=== PATIENT | female | born 1970 | race Two or more races ===

== ENCOUNTER → 2022-05-11 13:29 | Outpatient (BNVA) | payer OTHER, SELFPAY | PROVIDERS: PCP Internal Medicine; Visit Provider Psychiatry & Neurology Neurology | DX: M79.606 Pain in leg, unspecified (principal); M54.9 Dorsalgia, unspecified; G47.10 Hypersomnia, unspecified; R20.0 Anesthesia of skin; R20.2 Paresthesia of skin; R06.83 Snoring | CPT/HCPCS: 99202 ==

== ENCOUNTER → 2022-05-24 12:54 | Outpatient (REF) | payer OTHER, SELFPAY | LOC: HO.SL 12:54 | PROVIDERS: PCP Internal Medicine; Visit Provider Psychiatry & Neurology Neurology | DX: G47.33 Obstructive sleep apnea (adult) (pediatric) (principal); G47.10 Hypersomnia, unspecified; R06.83 Snoring; R06.89 Other abnormalities of breathing | CPT/HCPCS: 95806 ==

== ENCOUNTER 2022-07-06 11:00 | Outpatient (REF) | payer OTHER, SELFPAY ==
--- NOTE | 2022-07-06 10:00 | EMG_ITS ---
Please see scanned EMG / Nerve Conduction Report. MTDD
== END 2022-07-06 11:01 | disposition home or self-care (01) ==
LOC: HO.NEURO 11:00
PROVIDERS: PCP Internal Medicine; Visit Provider Psychiatry & Neurology Neurology
DX: R20.0 Anesthesia of skin (principal); R20.2 Paresthesia of skin
CPT/HCPCS: 95885; 95913

== ENCOUNTER → 2022-08-09 15:51 | Outpatient (BNVA) | payer OTHER, SELFPAY | PROVIDERS: PCP Internal Medicine; Visit Provider Psychiatry & Neurology Neurology | DX: M79.606 Pain in leg, unspecified (principal); M54.9 Dorsalgia, unspecified; G47.33 Obstructive sleep apnea (adult) (pediatric); Z79.899 Other long term (current) drug therapy | CPT/HCPCS: 99212 ==

== ENCOUNTER 2022-11-04 14:31 | Outpatient (AMB) | payer OTHER, SELFPAY ==
--- NOTE | 2022-11-04 14:33 | A.OFFVIS_ITS ---
Intake Vital Signs 11/04/22 14:34 Height 5 ft 8 in Weight 203 lb BMI 30.9 BP 116/78 Blood Pressure Location Rt brachial Position Sitting Intake Visit Reasons: 2m follow up NEUROPATHY- LVM Intake Note: Patient presents for 2 month follow up. Patient states I've been falling a lot, I loose my balance. Allergies codeine Allergy (Unknown, Verified 11/04/22 14:36) Unknown HPI HPI Comments History of Present Illness Details 52 y/o female patient presents for follo w up of neuropathy and sleep apnea. Pt's home sleep test was c/w mild sleep apnea AHI 7/hr and oxygen tayler was 79%. She is on APAP 5-20 cmH2O but not compliant. She is a side sleeper, and CPAP mask is uncomfortable. Pt uses wrist splint at night, and still gets hands numbness. She does not want to have carpal tunnel surgery. Pt reports that she fell couple of times since the last visit. Denies light headedness, dizziness, lost consciousness or leg weakness. Denies tripped over. She states that she just fell. She is afraid to fall again, and uses her sister's cane or walks holding wall and stuffs. Pt is on gabapentin 600 mg TID and it helps relieve her legs pain. Pt had PT twice for back pain, and does not want to do physical therapy again. [facility] Medical History Hypersomnia Gasping for breath Snoring Numbness and tingling Back pain Lower extremity pain Depression Thyroid cancer Esophageal stenosis Schatzki's ring Hypothyroidism Chronic paroxysmal hemicrania Family History Mother Diabetes Stroke Sister Cervical cancer Breast cancer Father Stroke Myocardial infarction Seizure Paternal Grandfather Cancer of prostate Social History Alcohol intake: never Patient Tobacco Use Status: Never used Tobacco Review of Systems Const All systems reviewed & are unremarkable except as noted in HPI and below Physical Exam Vital Signs: Last Vital Signs BP 116/78 11/04/22 14:34 BMI result Body Mass Index 30.9 Const General: cooperative and healthy appearing Nutritional Appearance: obese Orientation/consciousness: patient oriented x3 Limitations: physical limitations HEENT Head: Yes normal to inspection and Yes normocephalic Face and sinus: Yes normal facial exam Neuro General: patient oriented x3, tone normal and moves all extremities Cranial nerves: Yes Bilaterally intact EOM present, Yes Nystagmus not present, Yes Normal facial strength present, Yes Midline tongue present and Yes Symmetric palate elevation present Cognition (Neuro): normal cognition Gait exam (Neuro): Antalgic gait present Motor exam (neuro): Other motor observations present (limited due to pain) Deep tendon reflexes (DTR's): Right triceps reflex intensity grade: 1+, Left triceps reflex intensity grade: 1+, Rt Biceps (C5, C6): 1+, Left biceps reflex intensity grade: 1+, Right brachioradialis reflex intensity grade: 0, Left brachioradialis reflex intensity grade: 0, Right patellar reflex intensity grade: 1+ and Left patellar reflex intensity grade: 1+ Coordination: [id number] test normal Assessment & Plan Assessment & Plan (1) Lower extremity pain: Comment: / neuropathy ? restless legs Code(s): M79.606 - Pain in leg, unspecified (2) Back pain: Code(s): M54.9 - Dorsalgia, unspecified (3) Obstructive sleep apnea: Code(s): G47.33 - Obstructive sleep apnea (adult) (pediatric) Plan Stressed CPAP compliance, use CPAP nightly and more than 4 hrs. Offered to have physical therapy for bilateral lower extremities strength and gait training, but pt declined. Ordered walker and cane. Medications: New walker As directed 1 ea 0RF walker As directed 1 ea 0RF cane As directed 1 ea 0RF Coding Level of Care Code Est Pt Level 4 (51277) Diagnoses Lower extremity pain M79.606 Back pain M54.9 Obstructive sleep apnea G47.33
[2022-11-04 14:34] VITALS: BP 116/78; BMI 30.9
== END 2022-11-04 15:07 | disposition home or self-care (01) ==
PROVIDERS: PCP Internal Medicine; Visit Provider Nurse Practitioner Family
DX: M79.606 Pain in leg, unspecified (principal); M54.9 Dorsalgia, unspecified; G47.33 Obstructive sleep apnea (adult) (pediatric)
CPT/HCPCS: 99214

== ENCOUNTER → 2022-11-04 14:31 | Outpatient (BNVA) | payer OTHER, SELFPAY | PROVIDERS: PCP Internal Medicine; Visit Provider Nurse Practitioner Family | DX: M79.606 Pain in leg, unspecified (principal); G47.33 Obstructive sleep apnea (adult) (pediatric); M54.9 Dorsalgia, unspecified | CPT/HCPCS: 99212 ==

== ENCOUNTER 2023-09-22 15:34 | Outpatient (AMB) | payer OTHER, SELFPAY ==
--- NOTE | 2023-09-22 15:36 | A.OFFVIS_ITS ---
Vital Signs 09/22/23 15:38 Height 5 ft 8 in Weight 171 lb BMI 26.0 BP 130/90 H Blood Pressure Location Rt brachial Position Sitting Pulse 77 Pulse Source Pulse Oximeter Pulse Oximetry (%) 100 Oxygen Delivery Method Room Air Intake Visit Reasons: 6m follow up NEUROPATHY-CONF Intake Note: Patient presents for 6 month follow up. patient still hvaing really bad migraine headaches atleast 3 times a week Allergies codeine Allergy (Unknown, Verified 09/22/23 15:39) Unknown Medication List - Last Reconciled 09/22/23 by DASH Montgomery albuterol sulfate 90 mcg/actuation (Ventolin HFA) inhalation bupropion HCl XL 300 mg PO DAILY cane As directed fluoxetine mg PO gabapentin 600 mg (12 mL) PO TID levothyroxine (Tirosint-Porsha) mcg PO prazosin 2 mg PO BID Shower Chair As directed walker As directed [wrist splint As directed] zolpidem ER 12.5 mg PO BEDTIME PRN HPI Comments Details: 53-yr-old female presents for f/u visit of OG and neuropathy, however pt has new concerns she would like to also discuss, pt is accompanied by her sister. Pt reports she has been struggling to use her CPAP machine, as she is prone to vomiting during the day and night since she underwent thyroidectomy. Prior to , she had esophageal dilations which helped, however she has not seen Dr Morales since . She has been falling a lot. Sometimes it looks like her legs just give out. Sometimes will briefly pass out after falling. Afterwards, she feels more weak and tired. Sometimes she has lost urine during her falls. Her sister notes that pt was on seizure medication during childhood, and stopped before she was 18 yo. She recalls taking phenytoin. She had tonic-clonic convulsive seizures a/w tongue biting. Her sister feels the current passing out does not look like her previous seizures. She is prone to orthostatic lightheadedness. She does drink a lot of water- but chokes on the water. She also notes BUE and BLE rest tremor. She does get cortisone injections in her knees- by Dr Palencia. She has been having more noticeable headaches in the past year, but worse in the last 5 months. She is more forgetful. Her hands and feet shake. She has lost > 50lbs in the last year. Her sister wonders if her thyroid tx needs to be adjusted Her last endo appt and thyroid level was earlier this year. Per review of May 2023 [facility] endo note, pt was advised to have f/u thyroid studies and stat thyroid ultrasound- as there was concern for thyroid CA recurrence. Pt today sttaes that she has not done the labs, and was called to schedule the appointment but declined to schedule at that time. States today, she was just busy when they called. [facility] Medical History Hypersomnia Gasping for breath Snoring Numbness and tingling Back pain Lower extremity pain Depression Thyroid cancer Esophageal stenosis Schatzki's ring Hypothyroidism Chronic paroxysmal hemicrania Family History Mother Diabetes Stroke Sister Cervical cancer Breast cancer Father Stroke Myocardial infarction Seizure Paternal Grandfather Cancer of prostate Social History Alcohol intake: never Patient Tobacco Use Status: Never used Tobacco Physical Exam Vital Signs: Last Vital Signs Pulse 77 09/22/23 15:38 BP 130/90 H 09/22/23 15:38 Pulse Ox 100 09/22/23 15:38 Oxygen Delivery Method Room Air 09/22/23 15:38 BMI result Body Mass Index 26.0 Const General: cooperative and no acute distress Orientation/consciousness: patient oriented x3 Resp Effort & Inspection: normal respiratory effort and able to speak in complete sentences Neuro General: patient oriented x3 Cranial nerves: Yes CN's II-XII intact bilaterally Cognition (Neuro): normal cognition Psych Appearance: grossly normal Mental Status: mental status grossly normal Speech and movement: Normal speech and movement present Affect: normal affect Attitude: cooperative Assessment & Plan Assessment & Plan (1) Syncope: Code(s): R55 - Syncope and collapse Category: Medical (2) Schatzki's ring: Code(s): K22.2 - Esophageal obstruction Category: Medical (3) Worsening headaches: Code(s): R51.9 - Headache, unspecified Category: Medical (4) Obstructive sleep apnea: Comment: Mild Code(s): G47.33 - Obstructive sleep apnea (adult) (pediatric) Category: Medical (5) Esophageal stenosis: Code(s): K22.2 - Esophageal obstruction Category: Medical (6) Syncope: Code(s): R55 - Syncope and collapse Category: Medical (7) History of seizure disorder: Code(s): Z86.69 - Personal history of other diseases of the nervous system and sense organs Category: Medical (8) History of seizure in sibling: Code(s): Z82.0 - Family history of epilepsy and other diseases of the nervous system Category: Medical (9) History of thyroid cancer: Code(s): Z85.850 - Personal history of malignant neoplasm of thyroid Category: Medical Plan Pt advised to: Add 1-2 servings of electrolyte replacement beverage daily. Stand slowly. Try to use CPAP- may try new PAP mask. Follow-up w/ [facility] endocrinology, including ordered labs and thyroid US- discussed that there was concern for cancer recurrence. Brain MRI w/wo- d/t falls, syncope, worsening headaches in setting of h/o thyroid cancer and childhood seizure activity. Baseline EEG. Cardiology consult to eval for cardiogenic etiologies of falls/syncope. GI consult w/ Dr Morales d/t worsening dysphagia. Consider medication tx for headaches, syncope, ? sz activity upon review of above. Will follow-up upon review of above and in 6 months in clinic or sooner prn. Orders: Orders EEG electroencephalogram Today R55 - Syncope and collapse, Z82.0 - Family history of epilepsy and other diseases of the nervous system, Z86.69 - Personal history of other diseases of the nervous system and sense organs MR head/brain wo/w con Today R51.9 - Headache, unspecified, R55 - Syncope and collapse, Z85.850 - Personal history of malignant neoplasm of thyroid, Z86.69 - Personal history of other diseases of the nervous system and sense organs Referrals Gastroenterology Referral K22.2 - Esophageal obstruction, R55 - Syncope and collapse, Z82.0 - Family history of epilepsy and other diseases of the nervous system, Z86.69 - Personal history of other diseases of the nervous system and sense organs Cardiology Referral R55 - Syncope and collapse Coding Level of Care Code Est Pt Level 4 (56347) Complex EM visit Add On G2211 Diagnoses Syncope R55 Schatzki's ring K22.2 Worsening headaches R51.9 Obstructive sleep apnea G47.33 Esophageal stenosis K22.2 History of seizure disorder Z86.69 History of seizure in sibling Z82.0 History of thyroid cancer Z85.850 Time Spent (min) 30
[2023-09-22 15:38] VITALS: BP 130/90; PULSE 77; O2SAT 100; BMI 26.0
== END 2023-09-22 16:38 | disposition home or self-care (01) ==
PROVIDERS: PCP Internal Medicine; Visit Provider Nurse Practitioner Family
DX: R55 Syncope and collapse (principal); K22.2 Esophageal obstruction; R51.9 Headache, unspecified; G47.33 Obstructive sleep apnea (adult) (pediatric); Z86.69 Personal history of other diseases of the nervous system and sense organs; Z82.0 Family history of epilepsy and other diseases of the nervous system; Z85.850 Personal history of malignant neoplasm of thyroid
CPT/HCPCS: 99214; G2211

== ENCOUNTER → 2023-09-22 15:34 | Outpatient (BNVA) | payer OTHER, SELFPAY | PROVIDERS: PCP Internal Medicine; Visit Provider Nurse Practitioner Family | DX: G47.33 Obstructive sleep apnea (adult) (pediatric) (principal); G62.9 Polyneuropathy, unspecified; R55 Syncope and collapse; K22.2 Esophageal obstruction; R51.9 Headache, unspecified; Z86.69 Personal history of other diseases of the nervous system and sense organs; Z82.0 Family history of epilepsy and other diseases of the nervous system; Z85.850 Personal history of malignant neoplasm of thyroid; Z99.89 Dependence on other enabling machines and devices | CPT/HCPCS: 99212 ==

== ENCOUNTER 2024-01-16 12:57 | Outpatient (AMB) | payer OTHER, SELFPAY ==
[2024-01-16 13:13] VITALS: BP 115/70; PULSE 69; O2SAT 99; BMI 26.7
--- NOTE | 2024-01-16 13:13 | MHC.OFFVIS ---
Vital Signs 01/16/24 13:13 Height 5 ft 8 in Weight 175 lb 11.335 oz BMI 26.7 BP 115/70 Blood Pressure Location Lt brachial Position Sitting Pulse 69 Pulse Source Pulse Oximeter Pulse Oximetry (%) 99 Oxygen Delivery Method Room Air Intake Visit Reasons: Knee pain/inj/cm Intake Note: Patient is here for bilateral knee pain and injection today. Allergies codeine Allergy (Unknown, Verified 01/16/24 13:17) Unknown eggplant Adverse Reaction (Severe, Verified 01/16/24 13:17) Anaphylaxis paprika Adverse Reaction (Unknown, Verified 01/16/24 13:17) Rash pineapples Allergy (Mild, Uncoded 01/16/24 13:17) rash HPI HPI Knee pain/inj/cm: Details: She had to stop taking liquid Tylenol and ibuprofen due to burning sensation in her throat. She tries to do exercises learned from PT at home. Pain is uncontrolled at this time. [facility] Medical History Hypersomnia Gasping for breath Snoring Numbness and tingling Back pain Lower extremity pain Depression Thyroid cancer Esophageal stenosis Schatzki's ring Hypothyroidism Chronic paroxysmal hemicrania Family History Mother Diabetes Stroke Sister Cervical cancer Breast cancer Father Stroke Myocardial infarction Seizure Paternal Grandfather Cancer of prostate Social History Alcohol intake: never Patient Tobacco Use Status: Never used Tobacco Review of Systems Const All systems reviewed & are unremarkable except as noted in HPI and below Physical Exam Vital Signs: Last Vital Signs Pulse 69 01/16/24 13:13 BP 115/70 01/16/24 13:13 Pulse Ox 99 01/16/24 13:13 Oxygen Delivery Method Room Air 01/16/24 13:13 BMI result Body Mass Index 26.7 Const Other: General: Comfortable CVS: RRR Respiratory: clear to auscultation bilaterally. Good respiratory effort Skin: No lesions seen MSK: Tender to palpate bilateral knees along joint line. No effusions present. Knee flexion 90 degrees bilateral. Ambulates with cane. Office Procedures AMB Joint Injection/Aspiration Joint Injection/Aspiration Secondary Site: right knee Prep: site was prepped using aseptic technique Injected: 40 mg of, Kenalog, with 1 mL of and 1% plain lidocaine Procedure: The patient tolerated the procedure well Coding 95531 - Large joint Additional procedure code (CPT) needed (-50 modifier) AMB Joint Injection/Aspiration Joint Injection/Aspiration Primary Site: left knee Prep: site was prepped using aseptic technique Injected: 40 mg of, Kenalog, with 1 mL of and 1% plain lidocaine Procedure: The patient tolerated the procedure well Coding 37616 - Large joint Additional procedure code (CPT) needed (modifier -50) Office Meds Kenalog 40 mg/mL suspension for injection Performing Provider: Hilton Palencia MD Performing Location: [facility] [place] [facility] Administered by: Hilton Palencia MD on 01/16/24 22:09 Dose Route Admin Location Dispensed Lot Number Expiration Date [facility] Credit [employer] 40 mg intra-articular 1 mL [address]-5 [employer] lidocaine (PF) 10 mg/mL (1 %) injection solution Performing Provider: Hilton Palencia MD Performing Location: [facility] [place] [facility] Administered by: Hilton Palencia MD on 01/16/24 22:09 Dose Route Admin Location Dispensed Lot Number Expiration Date [facility] [employer] 10 mg Infiltration 2 mL 10599-440-28 [employer] Kenalog 40 mg/mL suspension for injection Performing Provider: Hilton Palencia MD Performing Location: [facility] [place] [facility] Administered by: Hilton Palencia MD on 01/16/24 22:09 Dose Route Admin Location Dispensed Lot Number Expiration Date [facility] [employer] 40 mg intra-articular 1 mL [id number] [employer] lidocaine (PF) 10 mg/mL (1 %) injection solution Performing Provider: Hilton Palencia MD Performing Location: [facility] [place] [facility] Administered by: Hilton Palencia MD on 01/16/24 22:09 Dose Route Admin Location Dispensed Lot Number Expiration Date [facility] [employer] 10 mg Infiltration 2 mL [id number] [employer] Assessment & Plan Assessment & Plan (1) Osteoarthritis of knees, bilateral: Comment: Pain is uncontrolled. Code(s): M17.0 - Bilateral primary osteoarthritis of knee Category: Medical Plan: Bilateral knee cortisone injections given today Return to clinic in 3 months Consider capsaicin topical apply to knees every 8 hours Requesting medical records from [facility] Orders: Orders AMB Joint Injection/Aspiration Today M17.0 - Bilateral primary osteoarthritis of knee AMB Joint Injection/Aspiration Today M17.0 - Bilateral primary osteoarthritis of knee Medications: New Kenalog (triamcinolone acetonide) 40 mg intra-articular ONCE 1 mL 0RF NS M17.0 - Bilateral primary osteoarthritis of knee Kenalog (triamcinolone acetonide) 40 mg intra-articular ONCE 1 mL 0RF NS M17.0 - Bilateral primary osteoarthritis of knee lidocaine (PF) 10 mg Infiltration ONCE 1 mL 0RF M17.0 - Bilateral primary osteoarthritis of knee lidocaine (PF) 10 mg Infiltration ONCE 1 mL 0RF M17.0 - Bilateral primary osteoarthritis of knee Coding Level of Care Code Est Pt Level 3 (88282) Complex EM visit Add On G2211 Diagnoses Osteoarthritis of knees, bilateral M17.0 CPT Codes Coding - 86788 Large joint: 62474 - Large joint ([id number]) Coding - 16570 Large joint: 70441 - Large joint ([id number])
== END 2024-01-16 13:44 | disposition home or self-care (01) ==
PROVIDERS: PCP Internal Medicine; Visit Provider Internal Medicine Rheumatology
DX: M17.0 Bilateral primary osteoarthritis of knee (principal)
CPT/HCPCS: 20610; 99213

== ENCOUNTER → 2024-01-16 12:57 | Outpatient (BNVA) | payer OTHER, SELFPAY | PROVIDERS: PCP Internal Medicine; Visit Provider Internal Medicine Rheumatology | DX: M17.0 Bilateral primary osteoarthritis of knee (principal) | CPT/HCPCS: 20610; 99212; J2003; J3300 ==

== ENCOUNTER 2024-04-25 14:07 | Outpatient (AMB) | payer OTHER, SELFPAY ==
--- NOTE | 2024-04-25 14:12 | MHC.OFFVIS ---
Vital Signs 04/25/24 14:16 Weight 176 lb BP 120/80 Blood Pressure Location Rt brachial Position Sitting Pulse 101 H Pulse Source Pulse Oximeter Pulse Oximetry (%) 98 Oxygen Delivery Method Room Air Intake Visit Reasons: Follow Up 3mo Intake Note: Patient is here for a OA follow up.and bilateral knee injections. Allergies codeine Allergy (Unknown, Verified 04/25/24 14:16) Unknown eggplant Adverse Reaction (Severe, Verified 04/25/24 14:16) Anaphylaxis paprika Adverse Reaction (Unknown, Verified 04/25/24 14:16) Rash pineapples Allergy (Mild, Uncoded 01/16/24 13:17) rash PFSH Medical History Hypersomnia Gasping for breath Snoring Numbness and tingling Back pain Lower extremity pain Depression Thyroid cancer Esophageal stenosis Schatzki's ring Hypothyroidism Chronic paroxysmal hemicrania Family History Mother Diabetes Stroke Sister Cervical cancer Breast cancer Father Stroke Myocardial infarction Seizure Paternal Grandfather Cancer of prostate Social History Alcohol intake: never Patient Tobacco Use Status: Never used Tobacco Physical Exam Vital Signs: Last Vital Signs Pulse 101 H 04/25/24 14:16 BP 120/80 04/25/24 14:16 Pulse Ox 98 04/25/24 14:16 Oxygen Delivery Method Room Air 04/25/24 14:16 Office Procedures AMB Joint Injection/Aspiration Joint Injection/Aspiration Details: Bilateral knee joints Prep: site was prepped using aseptic technique Injected into each joint: 40 mg of, Kenalog, with 1 mL of and 1% plain lidocaine Procedure: The patient tolerated the procedure well. Postprocedure protocol was discussed with patient. Coding 56256 - Bilateral Large Joint Procedure code (CPT) selection complete AMB Joint Injection/Aspiration Coding 68418 - Bilateral Large Joint Procedure code (CPT) selection complete Office Meds lidocaine (PF) 10 mg/mL (1 %) injection solution Performing Provider: Hilton Palencia MD [place] [facility] Administered by: Hilton Palencia MD on 04/25/24 15:09 Dose Route Admin Location Dispensed Lot Number Expiration Date [facility] [employer] 10 mg Infiltration 2 mL [id number] [employer] Kenalog 40 mg/mL suspension for injection Performing Provider: Hilton Palencia MD Performing Location: [facility] Administered by: Hilton Palencia MD on 04/25/24 15:09 Dose Route Admin Location Dispensed Lot Number Expiration Date [facility] [employer] Shooter 40 mg intra-articular 1 mL AP [id number] [employer] lidocaine (PF) 10 mg/mL (1 %) injection solution Performing Provider: Hilton Palencia MD Performing Location: [facility] Administered by: Hilton Palencia MD on 04/25/24 15:09 Dose Route Admin Location Dispensed Lot Number Expiration Date [facility] [employer] Tr[employer] Shooter 10 mg Infiltration 2 mL [id number] [employer] Kenalog 40 mg/mL suspension for injection Performing Provider: Hilton Palencia MD Performing Location: [facility] Administered by: Hilton Palencia MD on 04/25/24 15:09 Dose Route Admin Location Dispensed Lot Number Expiration Date [facility] [employer] Tr[employer] Shooter 40 mg intra-articular 1 mL AP [id number] [employer] Assessment & Plan Assessment & Plan (1) Osteoarthritis of knees, bilateral: Comment: Pain is uncontrolled. She is receiving 3 months benefit with cortisone injections Code(s): M17.0 - Bilateral primary osteoarthritis of knee Category: Medical Qualifiers: Osteoarthritis type: primary Qualified Code(s): M17.0 - Bilateral primary osteoarthritis of knee Plan: Patient received bilateral knee cortisone injections this visit Requesting medical records from [facility] 2nd request Return to clinic in 3 months Orders: Orders AMB Joint Injection/Aspiration Today M17.0 - Bilateral primary osteoarthritis of knee AMB Joint Injection/Aspiration Today M17.0 - Bilateral primary osteoarthritis of knee Coding Level of Care Code Est Pt Level 3 (44864) Complex EM visit Add On G2211 Diagnoses Primary osteoarthritis of both knees M17.0 Osteoarthritis type: primary CPT Codes Coding - 98505 - Bilateral Large Joint: 22924 - Bilateral Large Joint ([id number]) Coding - 28346 - Bilateral Large Joint: 31178 - Bilateral Large Joint ([id number])
[2024-04-25 14:16] VITALS: BP 120/80; PULSE 101; O2SAT 98
--- OUTSIDE RECORDS SUMMARY | 2024-04-25 17:57 | XMS_ITS | Encounter Summary ---
[facility] Organization [facility] Address [address] [place] [address] Care Team Providers Care Repairer Pump Name Role Phone Wiliam Das MD Primary Care Provider [phone] Reason for Visit * Cardiac Stress Testing (Routine) - Closed Specialty Diagnoses / Procedures Referred By Contac t Referred To Contact Cardiology Diagnoses Syncope, unspecified syncope type Chest pain, unspecified type Procedures Nuclear stress test with myocardial perfusion IA MYOCARDIAL PERFUSION IMAGING TOMOGRAPHIC MULTI STUDIES AT REST OR STRESS IA MYOCARDIAL PERFUSION IMAGING TOMOGRAPHIC SINGLE STUDY AT REST OR STRESS IA CARDIOVASCULAR STRESS TEST GLOBAL IA CV TMST/BIKE MAX/SUBMAX CONTINUOUS ECG MON/PHARM STRESS SUPVSR ONLY IA CV STRESS TEST/BIKE CONT ECG MON/PHARM STRESS INTERP & REPORT ONLY IA TEST STRESS CARDIOVASCULAR TRACING ONLY Victor Manuel Cole MD [address] [place] [address] [address] [place] [address] Phone: tel: fax: [facility] Referral ID Status Reason Start Date Expiration Date Visits Re quested Visits Authorized [id number] Closed 03/21/2024 05/20/2024 1 1 Encounter Details Date Type Department Care Team (Latest Contact Info) Description 04/05/2024 12:00 PM EST Ancillary Procedure [facility] - [address] [place] [phone] Syncope, unspecified syncope type; Chest pain, unspecified type Social History Tobacco Use Types Packs/Day Years Used Date Smoking Tobacco: Never Smokeless Tobacco: Never Alcohol Use Standard Drinks/Week Comments No 0 (1 standard drink = 0.6 oz pur e alcohol) Comments Unknown Sex and Gender Information Value Date Recorded Sex Assigned at Not on file Legal Sex Female 3:50 AM EST Gender Identity Not on file Sexual Orientation Not on file documented as of this encounter Last Filed Vital Signs Vital Sign Reading Time Taken Comments Blood Pressure 114/72 04/05/2024 12:37 PM EST Pulse - - Temperature - - Respiratory Rate - - Oxygen Saturation - - Inhaled Oxygen Concentration - - Weight 76.2 kg (168 lb) 04/05/2024 12:09 PM EST Height 172.7 cm (5' 8 ) 04/05/2024 12:09 PM EST Body Mass Index 25.54 04/05/2024 12:09 PM EST documented in this encounter Progress Notes * Adela Jerome MA - 04/05/2024 12:00 PM EST Called patient per Leesa Mckenzie SENIOR PROPERTY MANAGER to inform her that her nuclear stress test did not show any signs of abnormal perfusion to her heart. Patient understood and was thankful for the call documented in this encounter Plan of Treatment Upcoming Encounters Date Type Department Care Team (Late st Contact Info) Description 05/31/2024 12:30 PM EDT Ancillary Procedure [facility] [address] [place] [address] 07/19/2024 1:10 PM EDT Office Visit [facility] Cardiology [facility] [address] [place] [address] Leesa Mckenzie NP [address] [place] [address] [place] [id number] documented as of this encounter Procedures Procedure Name Priority Date/Time Associated Diagnosis Comments NM LEXISCAN STRESS TEST W/ MYOCARDIAL PERFUSION Routine 04/05/2024 2:43 PM EST Syncope, unspecified syncope type Chest pain, unspecified type documented in this encounter Results * NM LEXISCAN STRESS TEST W/ MYOCARDIAL PERFUSION (04/05/2024 2:43 PM EST) Exercise/injec tion duration (min) 0 CV PACS STRESS Exercise/injec tion duration (sec) 37 CV PACS STRESS Peak SBP 137 mmHg CV PACS STRESS Peak DBP 77 mmHg CV PACS STRESS Peak HR 150 bpm CV PACS STRESS Baseline HR 77 bpm CV PACS STRESS Baseline SBP 114 mmHg CV PACS STRESS Baseline DBP 72 mmHg CV PACS STRESS Estimated workload 1.0 METS CV PACS STRESS Percent HR 91 % CV PACS STRESS Rate Pressure Product 20,550.0 mmHg*bpm CV PACS STRESS Target HR 140 bpm CV PACS STRESS TID 0.94 CV PACS STRESS Nuc Stress EF 76 % CV PAC S STRESS Nuc Rest EF 72 % CV PACS STRESS BSA 1.91 m2 CV PACS STRESS Max HR Percent 107 % CV PA CS STRESS O2 sat rest 99 % CV PACS STRESS Anatomical Region Laterality Modality Nuclear Medicine 04/05/2024 1:01 PM EST 04/05/2024 1:39 PM EST Impressions 04/05/2024 4:37 PM EST Normal Regadenoson stress test with nuclear imaging. ?? No chest pain or EKG changes consistent with ischemia. Nuclear imaging revealed no significant perfusion defects after attenuation correction was applied. There is a normal TID ratio. Gated SPECT imaging was performed and revealed an LVEF of 72 %. Narrative 04/05/2024 4:37 PM EST ?Vasodilator (regadenoson) stress test was performed . ?? Hypertensive blood pressure response. Nuclear imaging of the left ventricle shows a normal cavity size. Myocardial perfusion imaging of the left ventricle reveals no significant perfusion defects after CT attenuation correction was applied to the study Gated SPECT imaging was performed which demonstrated normal left ventricular systolic function. The calculated LVEF is 72 %. TID ratio is normal. Stress Findings A pharmacological stress test was performed using regadenoson, 0.4 mg IV over 10-15 seconds, followed by radiopharmacological injection 10 seconds post infusion. Total stress time was 0 min and 37 sec. The patient reached the end of the protocol. Reversal medication aminophylline 50 mg p.o. Blood pressure demonstrated a hypertensive response. The patient reported dizziness during the stress test. That resolved after administration of aminophylline. ECG 55-year-old female with a past medical history significant for chest discomfort/chest pain and to rule out ischemia. Not on cardiac meds during testing. Baseline EKG: Normal sinus rhythm There were no arrhythmias during stress. There were no arrhythmias during recovery. Nondiagnostic in the setting of pharmacological nuclear stress test. Nuclear Study Quality Study technique: MPI, SPECT, multi, rest and stress, 1 day. Overall image quality is good. CT attenuation correction was utilized. No radiopharmaceutical dose was extravasated. Stress Function Comments Stress ejection fraction is 76%. Rest Function Comments Resting ejection fraction was 72%. us Victor Manuel Cole MD CV STRESS PROCEDURES Final Res ult documented in this encounter Visit Diagnoses Diagnosis Syncope, unspecified syncope type Chest pain, unspecified type documented in this encounter Administered Medications Inactive Administered Medications - up to 3 most recent administrations Medication Order MAR Action Action Date Dose Rate Site aminophylline injection 50 mg 50 mg, intravenous, Once in imaging, Starting on Mon04/05/24 at 1330, For 1 dose Given 04/05/2024 1:30 PM EST 50 mg regadenoson (LEXISCAN) injection 0.4 mg 0.4 mg, intravenous, Once in imaging, Starting on Mon04/05/24 at 1324, For 1 dose Given 04/05/2024 1:24 PM EST 0.4 mg Right Antecubital TC-99M tetrofosmin P radio-isotope injection 10.7 millicurie 10.7 millicurie, intravenous, Once in imaging, Starting on Mon04/05/24 at 1215, For 1 dose Given 04/05/2024 12:15 PM EST 10.7 millicuries Right Antecubital TC-99M tetrofosmin P radio-isotope injection 32.1 millicurie 32.1 millicurie, intravenous, Once in imaging, Starting on Mon04/05/24 at 1325, For 1 dose Given 04/05/2024 1:25 PM EST 32.1 millicuries Right Antecubital documented in this encounter Care Teams Repairer Pump Relationship Specialty Start Date End Date Wiliam Das MD [address] [place] [id number] PCP - General Internal Medicine 11/26/14 documented as of this encounter
--- OUTSIDE RECORDS SUMMARY | 2024-04-25 17:57 | XMS_ITS | Clinical Summary ---
Author Organization [place] [address] [address] [facility] Building Address [address] [place] [phone] Phone Care Team Providers Care Oyster Harvester Name Role Phone Arpit Green MD Primary Care Provider [phone] Allergies Active Allergy Reactions Criticality Noted Date Comments Codeine Rash Low 12/17/2014 Other 08/31/2020 Other Reaction(s): Rash/Dermatitis Eggplant and paprika Pineapple Rash Low 12/18/2017 Medications prazosin (MINIPRESS) 1 mg capsule Take 1 capsule (1 mg total) by mouth 2 (two) times a day if needed. Active OLANZapine (ZyPREXA ZYDIS) 20 mg disintegrating tablet DISSOLVE 1 TABLET BY MOUTH DAILY.*DOSE INCREASE* Active levothyroxine (SYNTHROID, LEVOTHROID) 300 mcg tablet Take 1 tablet (300 mcg total) by mouth 1 (one) time each day. Active fluticasone propion-salmetero L (ADVAIR HFA) 230-21 mcg/actuation inhaler Inhale 2 Puffs into the lungs 2 times daily. This medication has inhaler steroid: Rinse mouth with water and expectorate after each dose to prevent oral/esophagea l candidiasis or fungal infection. Active gabapentin (NEURONTIN) 250 mg/5 mL solution TAKE 6 ML BY MOUTH DAILY Active clotrimazole-beta methasone (LOTRISONE) 1-0.05 % cream Apply sparingly to external affected area 2 times daily for 7-10 days. Active zolpidem CR (AMBIEN CR) 12.5 mg CR tablet Take 1 tablet (12.5 mg total) by mouth at bedtime as needed. Active buPROPion XL (WELLBUTRIN XL) 300 mg 24 hr tablet Take 1 tablet (300 mg total) by mouth. Active LORazepam (ATIVAN) 1 mg tablet Take 1 mg by mouth 3 times daily as needed Active miscellaneous medical supply misc ARTHRITIS GLOVE SMALL 2 Devices by Does not apply route daily. 1 for each hand Active methocarbamoL (ROBAXIN) 500 mg tabletIndications :Acute bilateral low back pain with sciatica, sciatica laterality unspecified Take 1 tablet (500 mg total) by mouth 3 (three) times a day if needed for muscle spasms. 30 tablet Active Ventolin HFA 90 mcg/actuation inhalerIndication s:Mild persistent asthma, uncomplicated INHALE 2 PUFFS INTO THE LUNGS EVERY 6 HOURS NEEDED FOR WHEEZING OR SHORTNESS OF BREATH, TIGHTNESS 54 each 1 Active gabapentin (NEURONTIN) 300 mg capsule TAKE 1 CAPSULE BY MOUTH EVERY DAY IN THE EVENING FOR 7 DAYS, THEN INCREASE TO 1 CAPSULE TWICE DAILY 60 capsule 2 025 Active meloxicam (MOBIC) 7.5 mg tablet TAKE 1 TABLET BY MOUTH 2 TIMES DAILY FOR 360 DAYS. 60 tablet 3 025 Active meloxicam (MOBIC) 7.5 mg tablet TAKE 1 TABLET BY MOUTH 2 TIMES DAILY FOR 360 DAYS. 2024 Discontinued Hospital, Clinic, or Other Facility Administered Medication Ordered Dose Route Frequency Start Date End Date Status TC-99M tetrofosmin P radio-isotope injection 10.7 millicurie 10.7 millicurie IV Once in imaging 04/05/2024 04/05/2024 Ende d aminophylline injection 50 mg 50 mg IV Once in imaging 04/05/2024 04/05/2024 Ende d regadenoson (LEXISCAN) injection 0.4 mg 0.4 mg IV Once in imaging 04/05/2024 04/05/2024 End ed TC-99M tetrofosmin P radio-isotope injection 32.1 millicurie 32.1 millicurie IV Once in imaging 04/05/2024 04/05/2024 Ende d Active Problems Problem Noted Date Diagnosed Date Syncope and collapse 03/14/2024 Polyarthralgia 07/11/2023 Urinary incontinence 07/11/2023 Chronic paroxysmal hemicrania, not intractable 0 09/19/2018 Hypothyroidism associated with surgical procedur e 05/15/2017 Chronic Helicobacter pylori gastritis 02/18/2017 Esophageal stenosis 02/18/2017 Overview (12/26/2023): S/p dilation up to 12 mm on EGD 02/03/17. 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 09/13 Overview (12/26/2023): cT4N1 (tessie IVB), widely invasive FTC, S/p radiation 06/2016 with good response (tumor down from 5.7 cm to 2.3 cm), left hemithyroidectomy 04/06/2017 Severe episode of recurrent major depressive disorder, without psychotic features 09/14/2016 SOB (shortness of breath) 04/19/2016 Weakness of left upper extremity 04/19/2016 Papillary thyroid carcinoma 03/25/2016 Encounters Date Type Department Care Team Description 04/05/2024 12:00 PM EST Ancillary Procedure [facility] [address] [facility] [address] [place] [phone] Syncope, unspecified syncope type; Chest pain, unspecified type 03/15/2024 2:00 PM EST Office Visit [facility] Cardiology [facility] [address] [place] [phone] Victor Manuel Cole MD Syncope, unspecified syncope type (Primary Dx); Chest pain, unspecified type 01/29/2024 2:45 PM EST Telemedicine Internal Medicine - [address] [phone] Arpit Green MD Acute bilateral low back pain with sciatica, sciatica laterality unspecified (Primary Dx); Mild intermittent asthma without complication from Last 3 Months Immunizations Name Administration Dates Next Due Influenza trivalent, 0.5mL, preservative free (Fluarix; FluLaval; Fluzone) ages 6mo and older (Afluria) 3 years and older 01/19/2016,12/17/2014 Tdap Tetanus diptheria acell ular pertussis (Boostrix; Adacel) 7yo and older 01/10/2023 Surgical History Surgery Date Site/Laterality Comments OTHER SURGICAL HISTORY 02/03/2017 PROCEDURE: OUTSIDE ENDOSCOPY; COMMENT: Schatzki ring, esophageal stricture s/p dilation, H pylori gastritis OTHER SURGICAL HISTORY PROCEDURE: PLACEMENT OF GASTROSTOMY TUBE; COMMENT: placed 05/2016, d/c'd 09/2016 OTHER SURGICAL HISTORY 04/06/2017 PROCEDURE: HISTORICAL SUBTOTAL THYROIDECTOMY; COMMENT: left elizabet-thyroidectomy for invasive follicular thyroid cancer Medical History Medical History Date Comments Hypothyroidism associated wi th surgical procedure 05/15/2017 DX:Hypothyroidism associated with surgical procedure Chronic Helicobacter pylori gastritis 02/18/2017 DX:Chronic Helicobacter pylo ri gastritis Esophageal stenosis 02/18/2017 DX:Esophagea l stenosis; COMMENT: S/p dilation up to 12 mm on EGD 02/03/17. Needs repeat EGD in 3 weeks for retreatment GERD (gastroesophageal reflu x disease) 05/15/2017 DX:GERD (gastroesophageal re flux disease) Schatzki's ring 02/18/2017 DX:Schatzki's ri ng Severe episode of recurrent major depressive disorder, without psychotic features (CMS/HCC) 09/14/2016 DX:Severe episode of recu rrent major depressive disorder, without psychotic features (HCC) Thyroid cancer (CMS/HCC) 01/27/2017 DX:Thyr oid cancer (HCC); COMMENT: cT4N1 (tessie IVB), widely invasive FTC, S/p radiation 06/2016 with good response (tumor down from 5.7 cm to 2.3 cm), left hemithyroidectomy 04/06/2017 Epilepsy (CMS/HCC) DX:Epilepsy ( HCC) Meningitis DX:Meningitis Family History Medical History Relation Name Comments Throat cancer Aunt Other: epilepsy Brother childhood Crohn's disease Daughter Heart attack Father Other: stroke Father Seizures Father Diabetes Mother ovarian cancer age 70, multiple myeloma age 64 Multiple myeloma Mother Other: blood clots Mother Stroke Mother Crohn's disease Other 1 Crohn's disease Other 2 Prostate cancer Paternal Grandfather mets to the stomach Cervical cancer Sister 1 Other: blood clots Sister 1 genetic? Breast cancer Sister 2 Other: Churg-Staus Sister 2 Other: blood clots Sister 2 due to ta moxifen Relation Name Status Comments Aunt Brother Daughter Alive Father Mother Other 1 Other 2 Paternal Grandfather Sister 1 Sister 2 Son Alive Social History Tobacco Use Types Packs/Day Years Used Date Smoking Tobacco: Never Smokeless Tobacco: Never Alcohol Use Standard Drinks/Week Comments No 0 (1 standard drink = 0.6 oz pur e alcohol) Comments Unknown Sex and Gender Information Value Date Recorded Sex Assigned at Not on file Legal Sex Female 3:50 AM EST Gender Identity Not on file Sexual Orientation Not on file Obstetrics History Last Filed Vital Signs Vital Sign Reading Time Taken Comments Blood Pressure 114/72 04/05/2024 12:37 PM EST Pulse 74 03/15/2024 2:19 PM EST Temperature - - Respiratory Rate - - Oxygen Saturation 98% 03/15/2024 2:19 PM EST Inhaled Oxygen Concentration - - Weight 76.2 kg (168 lb) 04/05/2024 12:09 PM EST Height 172.7 cm (5' 8 ) 04/05/2024 12:09 PM EST Body Mass Index 25.54 04/05/2024 12:09 PM EST Plan of Treatment Upcoming Encounters Date Type Department Care Team (Late st Contact Info) Description 05/31/2024 12:30 PM EDT Ancillary Procedure [facility] Cardiology [facility] [address] [place] [address] 07/19/2024 1:10 PM EDT Office Visit [facility] Cardiology [facility] [address] [place] [address] [place] [address] Leesa Mckenzie NP [address] [place] [address] [place] [id number] Health Maintenance Due Date Last Done Comments COVID-19 Vaccine (#1) 1973 Hepatitis B Vaccines (1 of 3 - 19+ 3-dose series) 07/24/1987 Pneumococcal Vaccine: 50+ Years (1 of 2 - PCV) 07/24/1987 Pneumococcal Vaccine: Pediatrics (0 to 5 Years) and At-Risk Patients (6 to 64 Years) (1 of 2 - PCV) 07/24/1987 Zoster Vaccines (1 of 2) 07/24/1987 Cervical Cancer Screening: P ap Smear 07/14/2018 07/15/2015 Breast Cancer Screening 04/30/2021 05/01/19 20, 03/01/2018 Colorectal Cancer Screening: Colonoscopy 01/16/2022 Depression Screening 01/16/2022 HIV Screening 01/16/2022 Hepatitis C Screening 01/16/2022 Social Influencers of Health Screening 01/16/2022 Influenza Vaccine (#1) 2023 6, 12/17/2014 Cholesterol Screening (Lipid Panel) 01/11/2028 01/10/2023 DTaP,Tdap,and Td Vaccines (2 - Td or Tdap) 01/10/2033 01/10/2023 HIB Vaccines Aged Out No longer eligi ble based on patient's age to complete this topic HPV Vaccines Aged Out No longer eligi ble based on patient's age to complete this topic Hepatitis A Vaccines Aged Out No long er eligible based on patient's age to complete this topic IPV Vaccines Aged Out No longer eligi ble based on patient's age to complete this topic MMR Vaccines Aged Out No longer eligi ble based on patient's age to complete this topic Meningococcal ACWY Vaccine Aged Out N o longer eligible based on patient's age to complete this topic Meningococcal B Vacine Aged Out No lo nger eligible based on patient's age to complete this topic RSV Immunization Patients Under 20 months Aged Out No longer eligible b ased on patient's age to complete this topic Varicella Vaccines Aged Out No longer eligible based on patient's age to complete this topic Procedures Procedure Name Priority Date/Time Associated Diagnosis Comments NM LEXISCAN STRESS TEST W/ MYOCARDIAL PERFUSION Routine 04/05/2024 2:43 PM EST Syncope, unspecified syncope type Chest pain, unspecified type ECG 12-LEAD Routine 03/15/2024 2:26 PM EST Syncope, unspecified syncope type LIPID PANEL Routine 01/10/2023 MORA SCREENING DIGITAL Routine 05/01/2019 1:25 PM EDT Encounter for screening mammogram for malignant neoplasm of breast PAP SMEAR Routine 07/15/2015 from Last 3 Months or Most Recently Relevant to Health Maintenance Results * NM LEXISCAN STRESS TEST W/ [...] Function Comments Resting ejection fraction was 72%. Victor Manuel Cole MD CV STRESS PROCEDURES Final Res ult * ECG 12 lead (03/15/2024 2:26 PM EST) Ventricular Rate ECG 74 BPM GEMUSE Atrial Rate 74 BPM GEMUSE P-R Interval 162 ms GEMUSE QRS Duration 88 ms GEMUSE Q-T Interval 400 ms GEMUSE QTc 444 ms GEMUSE P Wave [place] 49 degrees GEMUSE R [place] 45 degrees GEMUSE T [place] 41 degrees GEMUSE ECG Interpretation Normal sinus rhythm Low voltage QRS Borderline ECG No previous ECGs available Confirmed by VICTOR MANUEL COLE ([id number]) on 03/15/2024 2:42:40 PM GEMUSE 03/15/2024 2:26 PM EST 03/15/2024 2:42 PM EST Victor Manuel Cole MD ECG ORDERABLES Final Result GEMUSE * Lipid panel (01/10/2023) LDL/HDL Ratio 3 Triglycerides 118 mg/dL Cholesterol 214 mg/dL HDL 67 mg/dL LDL Cholesterol 124 mg/dL Blood Venous blood specimen / Unknown us Historical Provider LAB BLOOD ORDERABLES Joaquina chow Result * MORA SCREENING DIGITAL (05/01/2019 1:25 PM EDT) Anatomical Region Laterality Modality Mammography 04/29/2019 1:11 PM EDT Narrative 05/01/2019 1:25 PM EDT [facility] Diagnostic Imaging Department [address] [place], [place] [id number] Patient: ??LAMBERT,TOYA ?/Age/Sex: 1970 - 48 - F Unit#: ??[id number] ? Location/Status: ??SPDIMAM/REG CLI ? Mnemonic/Ordering Site: ??DIGSC/SPMAM Ordering Physician: ??ARPIT GREEN MD [facility] Screening Digital - 04/29/19 - 1334 EXAM: [facility] Screening Digital EXAM DATE AND TIME: 04/29/2019 1:37 PM HISTORY: ??Screening. Sister had breast carcinoma at age 47. COMPARISON: ??03/01/18 ([facility], [place], [place]) TECHNIQUE: CC and MLO views of both breasts were obtained using full field digital mammography. Bilateral digital breast tomosynthesis was performed in the MLO projection. Computer aided detection with the [employer] 7.2-H was employed. TISSUE DENSITY: b. There are scattered areas of fibroglandular density. FINDINGS: The parenchymal pattern remains nodular. There is a new 9 mm circumscribed round mass in the middle 8:00 position of the right breast, approximately 7 to 8 cm from the nipple. Targeted ultrasound is recommended for further assessment. No grouped microcalcifications or areas of architectural distortion are seen. The skin and vascularity are unremarkable. IMPRESSION: 1. New right breast nodule, for which ultrasound is recommended. The patient will be called back. 2. Stable mammographic appearance of the left breast. No evidence of malignancy is seen. BI-RADS: ??Category 0: Incomplete - Need Additional Imaging Evaluation RECOMMENDATION(S): 1: Ultrasound follow-up RIGHT [id number], [id number], [id number] Dictating Physician: ??NATA SALDIVAR MD Electronically Signed by: ??NATA SALDIVAR MD Dic Date/Time: ??05/01/19 1324 Sign date/Time: ??05/01/19 1325 Procedure Note Nata Saldivar - 02/01/2022 [facility] Diagnostic Imaging Department [address] [place] [id number] Patient: TOYA LAMBERTO.B./Age/Sex: 1970 - 48 - F Unit#: [id number] Location/Status: SPDIMAM/REG CLI Mnemonic/Ordering Site: [facility] Ordering Physician: ARPIT GREEN MD Mora Screening Digital - 04/29/19 - 1334 EXAM: [facility] Screening Digital EXAM DATE AND TIME: 04/29/2019 1:37 PM HISTORY: Screening. Sister had breast carcinoma at age 47. COMPARISON: 03/01/18 ([facility],[place], [place]) TECHNIQUE: CC and MLO views of both breasts were obtained using fullfield digital mammography. Bilateral digital breast tomosynthesis was performedin the MLO projection. Computer aided detection with the [employer] Ghost Sentinelas employed. TISSUE DENSITY: b. There are scattered areas of fibroglandular density. FINDINGS: The parenchymal pattern remains nodular. There is a new 9 mmcircumscribed round mass in the middle 8:00 position of the right breast, approximately7 to 8 cm from the nipple. Targeted ultrasound is recommended for furtherassessment. No grouped microcalcifications or areas of architectural distortion areseen. The skin and vascularity are unremarkable. IMPRESSION: 1. New right breast nodule, for which ultrasound is recommended. Thepatient will be called back. 2. Stable mammographic appearance of the left breast. No evidence ofmalignancy is seen. BI-RADS: Category 0: Incomplete - Need Additional Imaging Evaluation RECOMMENDATION(S): 1: Ultrasound follow-up RIGHT [id number], [id number], [id number] Dictating Physician: NATA SALDIVAR MD Electronically Signed by: NATA SALDIVAR MD Dic Date/Time: 05/01/19 1324 Sign date/Time: 05/01/19 1325 Arpit Green MD IM BI PROCEDURES Final Result * Pap Smear (07/15/2015) Pap smear No Interpretation , Abstracted Historical Provider HEALTH MAINTENANCE Final Result from Last 3 Months or Most Recently Relevant to Health Maintenance [place] [address] [address] [place] [address] PLAN Care Teams Oyster Harvester Relationship Specialty Start Date End Date Arpit Green MD [address] [place] [id number] PCP - General Internal Medicine 11/26/14
== END 2024-04-25 14:58 | disposition home or self-care (01) ==
LOC: HO.RHES 14:08
PROVIDERS: PCP Internal Medicine; Visit Provider Internal Medicine Rheumatology
DX: M17.0 Bilateral primary osteoarthritis of knee (principal)
CPT/HCPCS: 20610; 99213

== ENCOUNTER → 2024-04-25 14:07 | Outpatient (BNVA) | payer OTHER, SELFPAY | PROVIDERS: PCP Internal Medicine; Visit Provider Internal Medicine Rheumatology | DX: M17.0 Bilateral primary osteoarthritis of knee (principal) | CPT/HCPCS: 20610; 99212; J2003; J3300 ==

== ENCOUNTER 2024-08-01 13:58 | Outpatient (AMB) | payer OTHER, SELFPAY ==
--- NOTE | 2024-08-01 14:12 | A.OFFVIS_ITS ---
Vital Signs 08/01/24 14:18 Height 5 ft 8 in Weight 166 lb 8 oz BMI 25.3 BP 112/80 Blood Pressure Location Rt brachial Position Sitting Pulse 71 Pulse Source Pulse Oximeter Pulse Oximetry (%) 98 Oxygen Delivery Method Room Air Intake Visit Reasons: 3 months Intake Note: Patient presents for 3 months follow up and bilateral knee injections. Allergies codeine Allergy (Unknown, Verified 08/01/24 14:18) Unknown eggplant Adverse Reaction (Severe, Verified 08/01/24 14:18) Anaphylaxis paprika Adverse Reaction (Unknown, Verified 08/01/24 14:18) Rash pineapples Allergy (Mild, Uncoded 01/16/24 13:17) rash HPI HPI 3 months: Details: She fell last week. She felt it tingle in her knees and then eventually she fell. No loss of consciousness. Right posterior calf is bruised. She has been icing. Increase pain since fall in her knees. [facility] Medical History Hypersomnia Gasping for breath Snoring Numbness and tingling Back pain Lower extremity pain Depression Thyroid cancer Esophageal stenosis Schatzki's ring Hypothyroidism Chronic paroxysmal hemicrania Family History Mother Diabetes Stroke Sister Cervical cancer Breast cancer Father Stroke Myocardial infarction Seizure Paternal Grandfather Cancer of prostate Social History Alcohol intake: never Patient Tobacco Use Status: Never used Tobacco Physical Exam Vital Signs: Last Vital Signs Pulse 71 08/01/24 14:18 BP 112/80 08/01/24 14:18 Pulse Ox 98 08/01/24 14:18 Oxygen Delivery Method Room Air 08/01/24 14:18 BMI result Body Mass Index 25.3 Const Other: General: Comfortable CVS: RRR Respiratory: clear to auscultation bilaterally. Good respiratory effort Skin: Bruise present right posterior calf MSK: Tender to palpate bilateral knees along joint line. No effusions present. Knee flexion 90 degrees bilateral. Ambulates with cane. Office Procedures AMB Joint Injection/Aspiration Joint Injection/Aspiration Details: Bilateral knee joints Prep: site was prepped using aseptic technique Injected into each joint: 40 mg of, Kenalog, with 1 mL of and 1% plain lidocaine Procedure: Informed verbal consent was obtained. The patient tolerated the procedure well. Postprocedure protocol was discussed with patient. Coding 71445 - Bilateral Large Joint Procedure code (CPT) selection complete AMB Joint Injection/Aspiration Coding Procedure code (CPT) selection complete Office Meds lidocaine (PF) 10 mg/mL (1 %) injection solution Performing Provider: Hilton Palencia MD Performing Location: [facility] Administered by: Taran Patton RN on 08/01/24 14:47 Dose Route Admin Location Dispensed Lot Number Expiration Date [facility] [employer] 10 mg Infiltration 2 mL [id number] 07/13/26 16954-560-94 [employer] Total Dispensed Waste 2 mL 50 % Kenalog 40 mg/mL suspension for injection Performing Provider: Hilton Palencia MD Performing Location: [facility] Administered by: Taran Patton RN on 08/01/24 14:47 Dose Route Admin Location Dispensed Lot Number Expiration Date [facility] [employer] 40 mg intra-articular 1 mL [id number] 09/12/26 94562-568-39 [employer] Total Dispensed Waste 1 mL 0 % lidocaine (PF) 10 mg/mL (1 %) injection solution Performing Provider: Hilton Palencia MD Performing Location: [facility] Administered by: Taran Patton RN on 08/01/24 14:47 Dose Route Admin Location Dispensed Lot Number Expiration Date [facility] [employer] 10 mg Infiltration 2 mL [id number] 07/13/26 89675-388-06 [employer] Total Dispensed Waste 2 mL 50 % Kenalog 40 mg/mL suspension for injection Performing Provider: Hilton Palencia MD Performing Location: [facility] Administered by: Taran Patton RN on 08/01/24 14:47 Dose Route Admin Location Dispensed Lot Number Expiration Date [facility] [employer] 40 mg intra-articular 1 mL [id number] 09/12/26 17456-237-48 [employer] Total Dispensed Waste 1 mL 0 % Assessment & Plan Assessment & Plan (1) Osteoarthritis of knees, bilateral: Comment: Pain is uncontrolled. She is receiving 3 months benefit with cortisone injections Code(s): M17.0 - Bilateral primary osteoarthritis of knee Category: Medical Qualifiers: Osteoarthritis type: primary Qualified Code(s): M17.0 - Bilateral primary osteoarthritis of knee Plan: Patient received bilateral knee cortisone injections this visit Return to clinic in 3 months Orders: Orders AMB Joint Injection/Aspiration Today M17.0 - Bilateral primary osteoarthritis of knee AMB Joint Injection/Aspiration Today M17.0 - Bilateral primary osteoarthritis of knee Coding Level of Care Code Est Pt Level 3 (35055) Complex EM visit Add On G2211 Diagnoses Primary osteoarthritis of both knees M17.0 Osteoarthritis type: primary CPT Codes Coding - 95259 - Bilateral Large Joint: 68759 - Bilateral Large Joint ([id number])
[2024-08-01 14:18] VITALS: BP 112/80; PULSE 71; O2SAT 98; BMI 25.3
== END 2024-08-01 14:46 | disposition home or self-care (01) ==
PROVIDERS: PCP Internal Medicine; Visit Provider Internal Medicine Rheumatology
DX: M17.0 Bilateral primary osteoarthritis of knee (principal)
CPT/HCPCS: 20610; 99213

== ENCOUNTER → 2024-08-01 13:58 | Outpatient (BNVA) | payer OTHER, SELFPAY | PROVIDERS: PCP Internal Medicine; Visit Provider Internal Medicine Rheumatology | DX: M17.0 Bilateral primary osteoarthritis of knee (principal) | CPT/HCPCS: 20610; 99212; J2003; J3300 ==

== ENCOUNTER 2024-11-07 13:30 | Outpatient (AMB) | payer OTHER, SELFPAY ==
[2024-11-07 13:35] VITALS: BP 130/80; PULSE 97; O2SAT 97; BMI 24.9
--- NOTE | 2024-11-07 13:35 | A.OFFVIS_ITS ---
Vital Signs 11/07/24 13:35 Height 5 ft 8 in Weight 163 lb 9.328 oz BMI 24.9 BP 130/80 Blood Pressure Location Rt brachial Position Sitting Pulse 97 Pulse Source Pulse Oximeter Pulse Oximetry (%) 97 Oxygen Delivery Method Room Air Intake Visit Reasons: 3 months Intake Note: Patient is here for a OA follow up and bilateral knee injections. Accompanied by: Self / Same As Patient Allergies codeine Allergy (Unknown, Verified 11/07/24 13:35) Unknown eggplant Adverse Reaction (Severe, Verified 11/07/24 13:35) Anaphylaxis paprika Adverse Reaction (Unknown, Verified 11/07/24 13:35) Rash pineapples Allergy (Mild, Uncoded 01/16/24 13:17) rash HPI HPI 3 months: Details: Joint pain started 2-3 days going her knees. No new joint swelling. She is using topical Maori cream with benefit (methyl salicylate and camphor as the active ingredient). [facility] Medical History Hypersomnia Gasping for breath Snoring Numbness and tingling Back pain Lower extremity pain Depression Thyroid cancer Esophageal stenosis Schatzki's ring Hypothyroidism Chronic paroxysmal hemicrania Family History Mother Diabetes Stroke Sister Cervical cancer Breast cancer Father Stroke Myocardial infarction Seizure Paternal Grandfather Cancer of prostate Social History Alcohol intake: never Patient Tobacco Use Status: Never used Tobacco Physical Exam Vital Signs: Last Vital Signs Pulse 97 11/07/24 13:35 BP 130/80 11/07/24 13:35 Pulse Ox 97 11/07/24 13:35 Oxygen Delivery Method Room Air 11/07/24 13:35 BMI result Body Mass Index 24.9 Const Other: General: Comfortable CVS: RRR Respiratory: clear to auscultation bilaterally. Good respiratory effort Skin: Bruise present right posterior calf MSK: Tender to palpate bilateral knees along joint line. No effusions present. Crepitus bilateral present. Knee flexion 90 degrees bilateral. Ambulates with cane. Office Procedures AMB Joint Injection/Aspiration Joint Injection/Aspiration Details: Bilateral knee joints Prep: site was prepped using aseptic technique Injected into each joint: 40 mg of, Kenalog, with 1 mL of and 1% plain lidocaine Procedure: Informed verbal consent was obtained. The patient tolerated the procedure well. Postprocedure protocol was discussed with patient. Coding - Large joint Procedure code (CPT) selection complete AMB Joint Injection/Aspiration Coding 25981 - Large joint Procedure code (CPT) selection complete Office Meds lidocaine (PF) 10 mg/mL (1 %) injection solution Performing Provider: Hilton Palencia MD Performing Location: [facility] Administered by: Taran Patton RN on 11/07/24 17:02 Dose Route Admin Location Dispensed Lot Number Expiration Date [facility] [employer] 1 mL Infiltration 2 mL [id number] 07/13/26 15221-527-22 [employer] Total Dispensed Waste 2 mL 50 % Kenalog 40 mg/mL suspension for injection Performing Provider: Hilton Palencia MD Performing Location: [facility] Administered by: Traan Patton RN on 11/07/24 17:02 Dose Route Admin Location Dispensed Lot Number Expiration Date [facility] [employer] 40 mg intra-articular 1 mL [id number] 09/12/25 [address]-4 [employer] Total Dispensed Waste 1 mL 0 % lidocaine (PF) 10 mg/mL (1 %) injection solution Performing Provider: Hilton Palencia MD Performing Location: [facility] Administered by: Taran Patton RN on 11/07/24 17:02 Dose Route Admin Location Dispensed Lot Number Expiration Date [facility] [employer] 1 mL Infiltration 2 mL [id number] 07/13/26 37106-333-76 [employer] Total Dispensed Waste 2 mL 50 % Kenalog 40 mg/mL suspension for injection Performing Provider: Hilton Palencia MD Performing Location: [facility] Administered by: Taran Patton RN on 11/07/24 17:02 Dose Route Admin Location Dispensed Lot Number Expiration Date [facility] [employer] 40 mg intra-articular 1 mL [id number] 09/12/25 [address]-1 [employer] Total Dispensed Waste 1 mL 0 % Assessment & Plan Assessment & Plan (1) Osteoarthritis of knees, bilateral: Comment: Pain is uncontrolled. She is receiving 3 months benefit with cortisone injections Code(s): M17.0 - Bilateral primary osteoarthritis of knee Category: Medical Qualifiers: Osteoarthritis type: primary Qualified Code(s): M17.0 - Bilateral primary osteoarthritis of knee Plan: Patient received bilateral knee cortisone injections this visit Return to clinic in 3 months Orders: Orders AMB Joint Injection/Aspiration 11/07/24 M17.0 - Bilateral primary osteoarthritis of knee AMB Joint Injection/Aspiration 11/07/24 M17.0 - Bilateral primary osteoarthritis of knee Coding Level of Care Code Est Pt Level 3 (33902) Complex EM visit Add On G2211 Diagnoses Primary osteoarthritis of both knees M17.0 Osteoarthritis type: primary CPT Codes Coding - 44488 Large joint: 56335 - Large joint ([id number]) Coding - 00696 Large joint: 09939 - Large joint ([id number])
--- OUTSIDE RECORDS SUMMARY | 2024-11-07 18:03 | XMS_ITS | Encounter Summary ---
Author Organization [facility] Address [address] [place] [address] Phone Care Team Providers Care Transition Mgr Rn Name Role Phone Wiliam Das MD Primary Care Provider + Eric Watson MD Unavailable [phone] Kayla Kruse [facility] Unavailable [phone] Encounter Details Date Type Department Care Team (Late st Contact Info) Description 04/06/[address] 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 Not on file Not on file documented as of this encounter Functional Status * Patient is deaf or has serious difficulty with hearing Answer Date of Assessment Author No 04/20/2016 11:48 AM Nazia Dunaway PA-C * Patient is blind or has serious difficulty with seeing, even when wearing glasses Answer Date of Assessment Author No 04/20/2016 11:48 AM Nazia Dunaway PA-C * Patient has serious difficulty walking or climbing stairs (5yr old or older) Answer Date of Assessment Author No 04/20/2016 11:48 AM Nazia Dunaway PA-C * Patient has serious difficulty dressing or bathing (5yr old or older) Answer Date of Assessment Author No 04/20/2016 11:48 AM Nazia Dunaway PA-C * Patient has serious difficulty doing errands alone such as visiting a doctor???s office or shopping, due to physical, mental, or emotional condition (15 years old or older) Answer Date of Assessment Author No 04/20/2016 11:48 AM Nazia Dunaway PA-C documented as of this encounter Mental Status * Patient has serious difficulty concentrating, remembering, or making decisions due to physical, mental, or emotional condition Answer Entry Date Author No 04/20/2016 11:48 AM Nazia Dunaway PA-C documented in this encounter Plan of Treatment Not on file documented as of this encounter Visit Diagnoses Not on filedocumented in this encounter Care Teams Transition Mgr Rn Relationship Specialty Start Date End Date Wiliam Das MD [address] [place] [address] PCP - General Internal Medicine 04/18/16 Eric Watson MD [address] [place] [address], [facility] [place] [address] Referring Physician General Surgery 04/18/16 Kayla Kruse, [address], [place] [address] [email or web address] Senior Gl Accountant 04/21/16 documented as of this encounter Additional Source Comments The information contained in this document represents components of the legal health record. It is not the complete legal health record.[facility]
--- OUTSIDE RECORDS SUMMARY | 2024-11-07 18:03 | XMS_ITS | Encounter Summary ---
Author Organization [facility] Address [address] [place] [address] Phone Care Team Providers Care Razor Sharpener Name Role Phone Wiliam Das MD Primary Care Provider + Eric Watson MD Unavailable [phone] Kayla Kruse [facility] Unavailable [phone] Encounter Details Date Type Department Care Team (Late st Contact Info) Description 05/01/2017 Procedure Pass [facility] [address] [place] [address] Social History Tobacco Use Types Packs/Day Years [...] on filedocumented in this encounter Care Teams Razor Sharpener Relationship Specialty Start Date End Date Wiliam Das MD [address] [place] [address] PCP - General Internal Medicine 04/18/16 Eric Watson MD [address] [place] [address], [place] [address] Referring Physician General Surgery 04/18/16 Kayla Kruse [address], [place] [address] [email or web address] Hand Suture Winder 04/21/16 documented as of this encounter Additional Source Comments The information contained in this document represents components of the legal health record. It is not the complete legal health record.[facility]
--- OUTSIDE RECORDS SUMMARY | 2024-11-07 18:04 | XMS_ITS | Encounter Summary ---
Author Organization [facility] Address [address] [place] [address] Phone Care Team Providers Care Coater Name Role Phone Wiliam Das MD Primary Care Provider + Eric Watson MD Unavailable [phone] Kayla Kruse [facility] Unavailable [phone] Encounter Details Date Type Department Care Team (Late st Contact Info) Description 04/18/2016 Procedure Pass [facility] [address] [place] [address] Social History Tobacco Use Types Packs/Day Years [...] on file documented as of this encounter Plan of Treatment Not on file documented as of this encounter Visit Diagnoses Not on filedocumented in this encounter Care Teams Coater Relationship Specialty Start Date End Date Wiliam Das MD [address] [place] [address] PCP - General Internal Medicine 04/18/16 Eric Watson MD [address] [place] [address], [place] [phone] Referring Physician General Surgery 04/18/16 Kayla Kruse, [facility] [address], [place] [phone] [email or web address] Scientific Illustrator 04/21/16 documented as of this encounter Additional Source Comments The information contained in this document represents components of the legal health record. It is not the complete legal health record.[facility]
--- OUTSIDE RECORDS SUMMARY | 2024-11-07 18:04 | XMS_ITS | Encounter Summary ---
Author Organization [facility] Address [address] [place] [address] Phone Care Team Providers Care Acetone Button Paster Name Role Phone Wiliam Das MD Primary Care Provider + Eric Watson MD Unavailable Kayla Kruse [facility] Unavailable [phone] Encounter Details Date Type Department Care Team (Late st Contact Info) Description 04/18/2016 Procedure Pass [facility] [address] [place] [address] Social History Tobacco Use Types Packs/Day Years [...] on filedocumented in this encounter Care Teams Acetone Button Paster Relationship Specialty Start Date End Date Wiliam Das MD [address] [place] [address] PCP - General Internal Medicine 04/18/16 Eric Watson MD [address] [place] [address], [place] [phone] Referring Physician General Surgery 04/18/16 Kayla Kruse, [facility] [address], [place] [address] [email or web address] 04/21/16 documented as of this encounter Additional Source Comments The information contained in this document represents components of the legal health record. It is not the complete legal health record.[facility]
--- OUTSIDE RECORDS SUMMARY | 2024-11-07 18:04 | XMS_ITS | Encounter Summary ---
Author Organization [facility] Address [address] [place] [address] Phone Care Team Providers Care Bridge Game Director Name Role Phone Wiliam Das MD Primary Care Provider + Eric Watson MD Unavailable [phone] Kayla Kruse [facility] Unavailable [phone] Reason for Referral * MRI/CAT Scan - Denied Specialty Diagnoses / Procedures Referred By Jeancarlos dominguez Referred To Contact Radiology Diagnoses Status post partial thyroidectomy Procedures US 3D Reconstruction Thyroid Michelle Cheatham FNP Phone: tel: fax: mailto:[email or web address] Referral ID Status Reason Start Date Expiration Date Visits Re quested Visits Authorized [id number] Denied 05/01/2017 1 0 Encounter Details Date Type Department Care Team (Latest Contact Info) Description 05/01/2017 Ancillary Orders [facility] [address], [address] [place] [address] Michelle Cheatham FNP [address] [place] [address] [email or web address] Status post partial thyroidectomy Social History Tobacco Use Types Packs/Day Years [...] on file documented as of this encounter Results * US 3D Reconstruction Thyroid (05/01/2017 2:35 PM EDT) Anatomical Region Laterality Modality Neck Ultrasound 05/01/2017 3:04 PM EDT Impressions 05/02/2017 8:24 AM EDT Heterogeneous echotexture in the left thyroid bed status post hemithyroidectomy compromises evaluation for residual thyroid tissue or thyroid bed nodules. No suspicious right thyroid nodules or cervical adenopathy. RECOMMENDATION: Short-term follow-up exam in 3 months. This report has been forwarded to an automated communication system which will electronically notify appropriate providers of potentially important findings. Narrative 05/02/2017 8:24 AM EDT TECHNIQUE: Ultrasound of the thyroid. 3D reconstructions were created and reviewed COMPARISON: Outside MRI neck 01/16/2017 FINDINGS: Right Thyroid: The right lobe measures 4.3 cm in sagittal dimension. No discrete nodules. No right sided adenopathy is detected. Left Thyroid Bed: Status post left hemithyroidectomy. Heterogeneous echotexture in the surgical bed is suggestive of postsurgical edema and/or blood products in setting of recent reported surgery. Measured 0.8 x 0.6 x 0.7 cm hypoechoic nodule in the left thyroidectomy bed is nonspecific and may represent focal area of soft tissue edema, hematoma or lymph node. Evaluation for residual thyroid tissue or thyroid bed nodule is compromised in setting of postsurgical background changes. No left sided adenopathy is detected. Procedure Note Kayla Block MD - 05/02/2017 TECHNIQUE: Ultrasound of the thyroid. 3D reconstructions were createdand reviewed COMPARISON: Outside MRI neck 01/16/2017 FINDINGS: Right Thyroid: The right lobe measures 4.3 cm in sagittal dimension. No discrete nodules. No right sided adenopathy is detected. Left Thyroid Bed: Status post left hemithyroidectomy. Heterogeneous echotexture in thesurgical bed is suggestive of postsurgical edema and/or blood products in settingof recent reported surgery. Measured 0.8 x 0.6 x 0.7 cm hypoechoic nodule inthe left thyroidectomy bed is nonspecific and may represent focal area ofsoft tissue edema, hematoma or lymph node. Evaluation for residual thyroidtissue or thyroid bed nodule is compromised in setting of postsurgical backgroundchanges. No left sided adenopathy is detected. IMPRESSION: Heterogeneous echotexture in the left thyroid bed status posthemithyroidectomy compromises evaluation for residual thyroid tissue or thyroid bednodules. No suspicious right thyroid nodules or cervical adenopathy. RECOMMENDATION: Short-term follow-up exam in 3 months. This report has been forwarded to an automated communication system whichwill electronically notify appropriate providers of potentially importantfindings. us Lesia Barnes MD IMG US THYROID Final Res ult documented in this encounter Visit Diagnoses Diagnosis Status post partial thyroidectomy Other postprocedural status Status post partial thyroidectomy Other postprocedural status documented in this encounter Care Teams Bridge Game Director Relationship Specialty Start Date End Date Wiliam Das MD [address] [place] [address] PCP - General Internal Medicine 04/18/16 Eric Watson MD [address] [place] [address], [place] [phone] Referring Physician General Surgery 04/18/16 Kayla Kruse, [address], [place] [phone] [email or web address] Machine Design Engineer 04/21/16 documented as of this encounter Additional Source Comments The information contained in this document represents components of the legal health record. It is not the complete legal health record.[facility]
--- OUTSIDE RECORDS SUMMARY | 2024-11-07 18:04 | XMS_ITS | Encounter Summary ---
Author Organization [facility] Address [address] [place] [address] Phone Care Team Providers Care Cancer Program Consultant Name Role Phone Wiliam Das MD Primary Care Provider + Eric Watson MD Unavailable [phone] Kayla Kruse [facility] Unavailable [phone] Encounter Details Date Type Department Care Team (Late st Contact Info) Description 04/18/2016 Procedure Pass [facility] [address] [place] [address] Social History Tobacco Use Types Packs/Day Years [...] on filedocumented in this encounter Care Teams Cancer Program Consultant Relationship Specialty Start Date End Date Wiliam Das MD [address] [place] [address] PCP - General Internal Medicine 04/18/16 Eric Watson MD [address] [place] [address], [place] [phone] Referring Physician General Surgery 04/18/16 Kayla Kruse, [facility] [address], [place] [address] [email or web address] Advanced Manufacturing Vice President 04/21/16 documented as of this encounter Additional Source Comments The information contained in this document represents components of the legal health record. It is not the complete legal health record.[facility]
--- OUTSIDE RECORDS SUMMARY | 2024-11-07 18:04 | XMS_ITS | Encounter Summary ---
Author Organization [employer] [facility] Address [address] [place] [address] Phone Care Team Providers Care Certified Tower Climber Name Role Phone Wiliam Das MD Primary Care Provider + Eric Watson MD Unavailable [phone] Kayla Kruse [facility] Unavailable [phone] Encounter Details Date Type Department Care Team (Late st Contact Info) Description 01/16/2017 Procedure Pass [facility] [address] [place] [address] Social History Tobacco Use Types Packs/Day Years [...] on filedocumented in this encounter Care Teams Certified Tower Climber Relationship Specialty Start Date End Date Wiliam Das MD [address] [place] [address] PCP - General Internal Medicine 04/18/16 Eric Watson MD [address] [place] [address], [place] [address] Referring Physician General Surgery 04/18/16 Kayla Kruse [address], [place] [address] [email or web address] Internal Controls Consultant 04/21/16 documented as of this encounter Additional Source Comments The information contained in this document represents components of the legal health record. It is not the complete legal health record.[facility]
--- OUTSIDE RECORDS SUMMARY | 2024-11-07 18:04 | XMS_ITS | Encounter Summary ---
Author Organization [facility] Address [address] [place] [address] Phone Care Team Providers Care Slot Attendant Name Role Phone Wiliam Das MD Primary Care Provider + Eric Watson MD Unavailable [phone] Kayla Kruse [facility] Unavailable [phone] Encounter Details Date Type Department Care Team (Late st Contact Info) Description 11/28/2016 Procedure Pass [facility] - MRI, [address] [address] Social History Tobacco Use Types Packs/Day Years [...] on filedocumented in this encounter Care Teams Slot Attendant Relationship Specialty Start Date End Date Wiliam Das MD [address] [place] [address] PCP - General Internal Medicine 04/18/16 Eric Watson MD [address] [place] [address], [facility] [place] [address] Referring Physician General Surgery 04/18/16 Kayla Kruse, [address], [place] [address] [email or web address] Buttonhole Maker 04/21/16 documented as of this encounter Additional Source Comments The information contained in this document represents components of the legal health record. It is not the complete legal health record.[facility]
--- OUTSIDE RECORDS SUMMARY | 2024-11-07 18:04 | XMS_ITS | Encounter Summary ---
Author Organization [facility] Address [address] [place] [address] Phone Care Team Providers Care Commercial Construction Project Manager Name Role Phone Wiliam Das MD Primary Care Provider + Eric Watson MD Unavailable [phone] Kayla Kruse [facility] Unavailable [phone] Encounter Details Date Type Department Care Team (Late st Contact Info) Description 04/19/[address] [facility] Periop [address] [place] [address] Social History Tobacco Use Types Packs/Day Years [...] on filedocumented in this encounter Care Teams Commercial Construction Project Manager Relationship Specialty Start Date End Date Wiliam Das MD [address] [place] [address] PCP - General Internal Medicine 04/18/16 Eric Watson MD [address] [place] [address], [place] [phone] Referring Physician General Surgery 04/18/16 Kayla Kruse, [facility] [address], [place] [address] [email or web address] Sourcing 04/21/16 documented as of this encounter Additional Source Comments The information contained in this document represents components of the legal health record. It is not the complete legal health record.[facility]
--- OUTSIDE RECORDS SUMMARY | 2024-11-07 18:04 | XMS_ITS | Clinical Summary ---
Author Organization [facility] Address [address] [place] [address] Phone Care Team Providers Care Home Care Specialist Name Role Phone Wiliam Das MD Primary Care Provider + Eric Watson MD Unavailable [phone] Kayla Kruse BILINGUAL LOAN PROCESSOR Unavailable [phone] Allergies Active Allergy Reactions Criticality Noted Date Comments Codeine Rash Low 04/18/2016 Eggplant Rash Low 12/18/2017 Paprika Rash Low 12/18/2017 Pineapple Rash Low 12/18/2017 Medications venlafaxine (EFFEXOR-ER,) 150 mg TR24 Take 300 mg by mouth once. Active pregabalin (LYRICA) 75 MG capsule Take 75 mg by mouth 2 (two) times a day. Active levothyroxine (SYNTHROID, LEVOTHROID) 137 MCG tablet Take 137 mcg by mouth every morning. Active citalopram (CELEXA) 10 MG tablet Take 40 mg by mouth daily. Active zolpidem (AMBIEN CR) 6.25 MG CR tablet Take 6.25 mg by mouth nightly as needed for sleep. Active famotidine (PEPCID) 20 MG tablet Take 20 mg by mouth 2 (two) times a day. Active oxyCODONE (OXYCONTIN) 10 mg TR12 12 hr tablet Take 10 mg by mouth every 12 (twelve) hours. Active oxyCODONE 5 MG immediate release tablet Take 10 mg by mouth every 4 (four) hours as needed for moderate pain. Active oxyCODONE 5 MG immediate release tablet Take 1 tablet (5 mg total) by mouth every 4 (four) hours as needed for moderate pain. Pt. may request partial fill 20 tablet 04/07/2017 Active Active Problems Problem Noted Date Diagnosed Date Thyroid cancer 04/06/2017 Shortness of breath 04/19/2016 Assessment & Plan (04/20/2016 3:35 PM EST): Related to rapid progression of tumor. T There evidence of rightward deviation and mild narrowing of the glottic and infraglottic airway. She is comfortable on room air but at high risk for decompensation with further invasion of tumor. CT PE negative for PE, no evidence of metastatic disease. - Maintain airway precautions - Workup as above in anticipation of starting chemo/xrt - Supplemental O2 as needed for comfort, although O2 saturation remains stable on room air. Weakness of left upper extremity 04/19/2016 Assessment & Plan (04/20/2016 3:36 PM EST): Likely related to external compression of peripheral nerve. CT head was negative, neuro exam stable. -symptomatic treatment of pain - pt prefers to avoid taking narcotics as able. 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 She was seen for initial consultation at [facility] on 04/18, and subsequently referred to the ED for concerns for airway compromise. She has significant local mass effect causing sob, dysphagia and LUE weakness/pain. She was seen by endocrine surgery (Dr. Asael Vazquez), and was not found to be a candidate for surgical resection. Planned for incisional biopsy today. Primary oncologist Dr. Lua/Thong Matute BUDGET RECORD CLERK. - Plan per primary oncology team: ongoing planning for initiation of chemo/radiation with weekly carbo taxol as radiation sensitizers. - PET scan per outpatient team, f/u read - S/p biopsy of neck mass in the OR 04/[address] Vazquez - Radiation oncology consulted, appreciate recs: Confirmed in agreement for discharge home to [facility] with plan to have radiation as an outpatient there . Papillary thyroid carcinoma 03/25/2016 Family History Medical History Relation Comments Breast cancer Sister Relation Status Comments Sister Social History Tobacco Use Types Packs/Day Years Used Date Smoking Tobacco: Never Smokeless Tobacco: Never Alcohol Use Standard Drinks/Week Comments No 0 (1 standard drink = 0.6 oz pur e alcohol) Education Answer Date Recorded Are you interested in more education? Not on bety e 06/10/2022 Are you concerned about learning? Not on file 06/10/2022 No 06/10/2022 No 06/10/2022 Digital Access Answer Date Recorded No 07/11/2022 No 07/11/2022 No 07/11/2022 Reliable internet access at home? Not on file 07/11/2022 Device with a working camera? 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 Not on file Not on file Not on file Last Filed Vital Signs Vital Sign Reading Time Taken Comments Blood Pressure 130/82 12/18/2017 11:54 AM EST Pulse 82 12/18/2017 11:54 AM EST Temperature 37 C (98.6 F) 12/18/2017 11:54 AM EST Respiratory Rate 16 12/18/2017 11:54 AM EST Oxygen Saturation 99% 12/18/2017 11:54 AM EST Inhaled Oxygen Concentration - - Weight 99.8 kg (220 lb) 12/18/2017 11:54 AM EST Height 163.2 cm (5' 4.25 ) 12/18/2017 11:[address] Body Mass Index 37.47 12/18/2017 11:54 AM EST Plan of Treatment Health Maintenance Due Date Last Done Comments Adult Td,Tdap Booster 1968 LIPID PANEL 1968 TSH LEVEL 1968 DEPRESSION SCREENING 1980 HEPATITIS C SCREENING 1986 HIV ONE-TIME SCREENING (18-6 5 YEARS) 1986 PNEUMOCOCCAL VACCINES (50+ years) (1 of 2 - PCV) 07/24/1987 ZOSTER VACCINES (1 of 2) 07/24/1987 PAP SMEAR 1989 MAMMOGRAM 2008 COLOGUARD 2013 COLONOSCOPY 2013 COLORECTAL CANCER SCREENING 2013 FIT TEST 2013 FOBT 2013 SIGMOIDOSCOPY 2013 VIRTUAL COLONOSCOPY 2013 INFLUENZA VACCINE (#1) 2024 6, 12/17/2014 COVID-19 VACCINE (2023-2 5 season) 2024 SMOKING STATUS SCREENING (On ce After 26 Yrs) Completed 12/18/2017 HEPATITIS A VACCINES Aged Out No long er eligible based on patient's age to complete this topic HIB VACCINES Aged Out No longer eligi ble based on patient's age to complete this topic MENINGOCOCCAL VACCINES (ACWY) Aged Out No longer eligible based on patient's age to complete this topic MENINGOCOCCAL VACCINES (B) Aged Out N o longer eligible based on patient's age to complete this topic Medical Devices Not on file Insurance [address] [facility] Member Subscriber Plan / Payer (Ef fective 2016-Present) Name:Toya Lambert Relation to Subscriber:Self Name:Fausto Toya Payer ID:Not on file Type:Medicaid Address: [address] [place] Member Subscriber Plan / Payer (Ef fective 2016-Present) Name:Toya Lambert Relation to Subscriber:Self Name:Toya Lambert Payer ID:Not on file Type:Medicaid Address: [address] [place] [address] Member Subscriber Plan / Payer (Ef fective 2016-Present) Name:Toya Lambert Relation to Subscriber:Self Name:Humera Lambertne Payer ID:Not on file Type:Medicaid Address: [address] Member Subscriber Plan / Payer (Ef fective 2016-Present) Name:Toya Lambert Relation to Subscriber:Self Name:Toya Lambert Payer ID:Not on file Type:Medicaid Address: [address] [employer] Member Subscriber Plan / Payer (Ef fective 2016-Present) Name:Toya Lambert Relation to Subscriber:Self Name:Humera Lambertne Payer ID:Not on file Type:Medicaid Address: [address] Member Subscriber Plan / Payer (Ef fective 2016-Present) Name:Lambert Toya Relation to Subscriber:Self Name:Lambert Toya Payer ID:Not on file Type:Medicaid Address: [address] Member Subscriber Plan / Payer (Ef fective 2016-Present) Name:LambertToya Relation to Subscriber:Self Name:Toya Lambert Payer ID:Not on file Type:Medicaid Address: [address] [facility] Member Subscriber Plan / Payer (Ef fective 2016-Present) Name:Toya Lambert Relation to Subscriber:Self Name:Toya Lambert Payer ID:Not on file Type:Medicaid Address: [address] Advance Directives For more information, please contact: [phone] (9AM - 5PM [facility], Monday-Monday) Documents on File Type Date Recorded Patient Java Android Developer Expl anation Healthcare Proxy 04/22/2016 9:22 AM * Full Code (Presumed) (Latest Code Status on File) Date Activated Date Inactivated Comments 04/06/2017 3:02 PM 04/07/2017 6:25 PM * Full Code (Presumed) Date Activated Date Inactivated Comments 04/06/2017 8:52 AM 04/06/2017 3:02 PM * Full Code (Presumed) Date Activated Date Inactivated Comments 04/19/2016 8:36 PM 04/20/2016 6:38 PM * Full Code (Presumed) Date Activated Date Inactivated Comments 04/18/2016 10:34 PM 04/19/2016 8:36 PM Healthcare Agents on File Name Relationship Healthcare Agent [facility] Loreta Mason Sister .Primary a [facility] Care Agent (Proxy form on file) Care Teams Home Care Specialist Relationship Specialty Start Date End Date Wiliam Das MD [address] [place] [address] PCP - General Internal Medicine 04/18/16 Eric Watson MD [address] [place] [address], [facility] [place] [address] Referring Physician General Surgery 04/18/16 Kayla Kruse, [address], [facility] [place] [address] [email or web address] Chute Loader 04/21/16 Additional Source Comments The information contained in this document represents components of the legal health record. It is not the complete legal health record.[facility]
== END 2024-11-07 14:18 | disposition home or self-care (01) ==
LOC: HO.RHES 13:31
PROVIDERS: PCP Internal Medicine; Visit Provider Internal Medicine Rheumatology
DX: M17.0 Bilateral primary osteoarthritis of knee (principal)
CPT/HCPCS: 20610; 99213

== ENCOUNTER → 2024-11-07 13:30 | Outpatient (BNVA) | payer OTHER, SELFPAY | PROVIDERS: PCP Internal Medicine; Visit Provider Internal Medicine Rheumatology | DX: M17.0 Bilateral primary osteoarthritis of knee (principal) | CPT/HCPCS: 20610; 99212; J2003; J3301 ==

== ENCOUNTER 2025-01-30 14:46 | Outpatient (AMB) | payer OTHER, SELFPAY ==
--- NOTE | 2025-01-30 14:46 | MHC.OFFVIS ---
Vital Signs 01/30/25 14:47 Height 5 ft 8 in Weight 164 lb 10.965 oz BMI 25.0 BP 120/80 Blood Pressure Location Rt brachial Position Sitting Pulse 63 Pulse Source Pulse Oximeter Pulse Oximetry (%) 97 Oxygen Delivery Method Room Air Intake Visit Reasons: Per MD/ F/U Intake Note: Patient presents today to discuss labs. Accompanied by: Self / Same As Patient Allergies codeine Allergy (Unknown, Verified 01/30/25 14:46) Unknown eggplant Adverse Reaction (Severe, Verified 01/30/25 14:46) Anaphylaxis paprika Adverse Reaction (Unknown, Verified 01/30/25 14:46) Rash pineapples Allergy (Mild, Uncoded 01/16/24 13:17) rash HPI HPI Per MD/ F/U: Details: She is starting to experience some knee pain. [facility] Medical History Hypersomnia Gasping for breath Snoring Numbness and tingling Back pain Lower extremity pain Depression Thyroid cancer Esophageal stenosis Schatzki's ring Hypothyroidism Chronic paroxysmal hemicrania Family History Mother Diabetes Stroke Sister Cervical cancer Breast cancer Father Stroke Myocardial infarction Seizure Paternal Grandfather Cancer of prostate Social History Alcohol intake: never Patient Tobacco Use Status: Never used Tobacco Physical Exam Vital Signs: Last Vital Signs Pulse 63 01/30/25 14:47 BP 120/80 01/30/25 14:47 Pulse Ox 97 01/30/25 14:47 Oxygen Delivery Method Room Air 01/30/25 14:47 BMI result Body Mass Index 25.0 Const Other: General: Comfortable CVS: RRR Respiratory: clear to auscultation bilaterally. Good respiratory effort Skin: Bruise present right posterior calf MSK: Tender to palpate bilateral knees along joint line. No effusions present. Crepitus bilateral present. Knee flexion 90 degrees bilateral. Ambulates with cane. Office Procedures AMB Joint Injection/Aspiration Joint Injection/Aspiration Details: Bilateral knee joints Prep: site was prepped using aseptic technique Injected into each joint: 40 mg of, Kenalog, with 1 mL of and 1% plain lidocaine Procedure: Informed verbal consent was obtained. The patient tolerated the procedure well. Postprocedure protocol was discussed with patient. Secondary Site: Right Knee Coding 49104 - Bilateral Large Joint Procedure code (CPT) selection complete AMB Joint Injection/Aspiration Joint Injection/Aspiration Primary Site: Left Knee Coding 94093 - Bilateral Large Joint Procedure code (CPT) selection complete Office Meds lidocaine (PF) 10 mg/mL (1 %) injection solution Performing Provider: Hilton Palencia MD Performing Location: [facility] Administered by: Hilton Palencia MD on 01/30/25 15:11 Dose Route Admin Location Dispensed Lot Number Expiration Date [employer] Engineering Mgr 1 mL Infiltration knee right 2 mL [id number] 04/12/28 17437-425-43 [employer] Total Dispensed Waste 2 mL 50 % Kenalog 40 mg/mL suspension for injection Performing Provider: Hilton Palencia MD Performing Location: [facility] Administered by: Hilton Palencia MD on 01/30/25 15:11 Dose Route Admin Location Dispensed Lot Number Expiration Date [facility] Engineering Mgr 40 mg intra-articular knee right 1 mL [id number] 08/12/26 [address]-8 [employer] Total Dispensed Waste 1 mL 0 % lidocaine (PF) 10 mg/mL (1 %) injection solution Performing Provider: Hilton Palencia MD Performing Location: [facility] Administered by: Hilton Palencia MD on 01/30/25 15:11 Dose Route Admin Location Dispensed Lot Number Expiration Date [employer] Engineering Mgr 1 mL Infiltration knee left 2 mL [id number] 04/12/28 42166-994-45 [employer] Total Dispensed Waste 2 mL 50 % Kenalog 40 mg/mL suspension for injection Performing Provider: Hilton Palencia MD Performing Location: [facility] Administered by: Hilton Palencia MD on 01/30/25 15:11 Dose Route Admin Location Dispensed Lot Number Expiration Date [facility] Engineering Mgr 40 mg intra-articular knee left 1 mL [id number] 08/12/26 [address]-5 [employer] Total Dispensed Waste 1 mL 0 % Assessment & Plan Assessment & Plan (1) Osteoarthritis of knees, bilateral: Comment: Pain is uncontrolled. She is receiving 3 months benefit with cortisone injections Code(s): M17.0 - Bilateral primary osteoarthritis of knee Category: Medical Qualifiers: Osteoarthritis type: primary Qualified Code(s): M17.0 - Bilateral primary osteoarthritis of knee Plan: Patient received bilateral knee cortisone injections this visit Return to clinic in 3 months Orders: Orders AMB Joint Injection/Aspiration 01/30/25 M17.0 - Bilateral primary osteoarthritis of knee AMB Joint Injection/Aspiration 01/30/25 M17.0 - Bilateral primary osteoarthritis of knee Coding Level of Care Code Est Pt Level 3 (58953) Add On Problem Visit Only Diagnoses Primary osteoarthritis of both knees M17.0 Osteoarthritis type: primary CPT Codes Coding - 49250 - Bilateral Large Joint: 89374 - Bilateral Large Joint ([id number]) Coding - 13611 - Bilateral Large Joint: 69010 - Bilateral Large Joint ([id number])
[2025-01-30 14:47] VITALS: BP 120/80; PULSE 63; O2SAT 97; BMI 25.0
--- OUTSIDE RECORDS SUMMARY | 2025-01-30 18:52 | XMS_ITS | Encounter Summary ---
Author Organization [facility] Address [address] [place] [address] Phone Care Team Providers Care Borematic Machine Operator Name Role Phone Wiliam Das MD Primary Care Provider + Eric Watson MD Unavailable [phone] Kayla Kruse [facility] Unavailable [phone] Encounter Details Date Type Department Care Team (Late st Contact Info) Description 04/18/2016 Procedure Pass [facility] [address] [place] [address] Social History Tobacco Use Types Packs/Day Years [...] on filedocumented in this encounter Care Teams Borematic Machine Operator Relationship Specialty Start Date End Date Wiliam Das MD [address] [place] [address] PCP - General Internal Medicine 04/18/16 Eric Watson MD [address] [place] [address], [place] [address] Referring Physician General Surgery 04/18/16 Kayla Kruse, [facility] [address], [place] [address] [email or web address] Profiler Hand 04/21/16 documented as of this encounter Additional Source Comments The information contained in this document represents components of the legal health record. It is not the complete legal health record.[facility]
--- OUTSIDE RECORDS SUMMARY | 2025-01-30 18:52 | XMS_ITS | Encounter Summary ---
Author Organization [facility] Address [address] [place] [address] Phone Care Team Providers Care Direct Service Worker Name Role Phone Wiliam Das MD Primary Care Provider + Eric Watson MD Unavailable [phone] [facility] Unavailable [phone] Encounter Details Date Type Department Care Team (Late st Contact Info) Description 04/06/2017 Procedure Pass [facility] PERIOPERATIVE DEPT [address] [place] [phone] Social History Tobacco Use Types Packs/Day Years [...] on filedocumented in this encounter Care Teams Direct Service Worker Relationship Specialty Start Date End Date Wiliam Das MD [address] [place] [address] PCP - General Internal Medicine 04/18/16 Eric Watson MD [address] [place] [address], [place] [address] Referring Physician General Surgery 04/18/16 Kayla Kruse, [address], [place] [address] [email or web address] Dictating Machine Mechanic 04/21/16 documented as of this encounter Additional Source Comments The information contained in this document represents components of the legal health record. It is not the complete legal health record.[facility]
--- OUTSIDE RECORDS SUMMARY | 2025-01-30 18:52 | XMS_ITS | Encounter Summary ---
Author Organization [facility] Address [address] [place] [address] Phone Care Team Providers Care Beverage Host Name Role Phone Wiliam Das MD Primary Care Provider + Eric Watson MD Unavailable [phone] Kayla Kruse [facility] Unavailable [phone] Encounter Details Date Type Department Care Team (Late st Contact Info) Description 04/18/[address] [facility] [address] [place] [address] Social History Tobacco Use Types Packs/Day Years [...] on filedocumented in this encounter Care Teams Beverage Host Relationship Specialty Start Date End Date Wiliam Das MD [address] [place] [address] PCP - General Internal Medicine 04/18/16 Eric Watson MD [address] [place] [address], [place] [address] Referring Physician General Surgery 04/18/16 Kayla Kruse, [facility] [address], [place] [address] [email or web address] Fur Puller 04/21/16 documented as of this encounter Additional Source Comments The information contained in this document represents components of the legal health record. It is not the complete legal health record.[facility]
--- OUTSIDE RECORDS SUMMARY | 2025-01-30 18:52 | XMS_ITS | Encounter Summary ---
Author Organization [facility] Address [address] [place] [address] Phone Care Team Providers Care Greenskeeper Laborer Name Role Phone Wiliam Das MD Primary Care Provider + Eric Watson MD Unavailable [phone] Kayla Kruse [facility] Unavailable [phone] Encounter Details Date Type Department Care Team (Late st Contact Info) Description 11/28/2016 Procedure Pass [facility] - MRI, [address] [address] Social History Tobacco Use Types Packs/Day Years [...] on filedocumented in this encounter Care Teams Greenskeeper Laborer Relationship Specialty Start Date End Date Wiliam Das MD [address] [place] [address] PCP - General Internal Medicine 04/18/16 Eric Watson MD [address] [place] [address], [facility] [place] [address] Referring Physician General Surgery 04/18/16 Kayla Kruse, [address], [place] [address] [email or web address] Inking Machine Tender 04/21/16 documented as of this encounter Additional Source Comments The information contained in this document represents components of the legal health record. It is not the complete legal health record.[facility]
--- OUTSIDE RECORDS SUMMARY | 2025-01-30 18:52 | XMS_ITS | Encounter Summary ---
Author Organization [facility] Address [address] [place] [address] Phone Care Team Providers Care Mate First Name Role Phone Wiliam Das MD Primary Care Provider + Eric Watson MD Unavailable [phone] Kayla Kruse [facility] Unavailable [phone] Encounter Details Date Type Department Care Team (Late st Contact Info) Description 04/19/2016 Procedure Pass [facility] Periop [address] [place] [address] Social History Tobacco Use Types Packs/Day Years [...] on filedocumented in this encounter Care Teams Mate First Relationship Specialty Start Date End Date Wiliam Das MD [address] [place] [address] PCP - General Internal Medicine 04/18/16 Eric Watson MD [address] [place] [address], [place] [phone] Referring Physician General Surgery 04/18/16 Kayla Kruse, [facility] [address], [place] [address] [email or web address] Electric Bath Attendant 04/21/16 documented as of this encounter Additional Source Comments The information contained in this document represents components of the legal health record. It is not the complete legal health record.[facility]
--- OUTSIDE RECORDS SUMMARY | 2025-01-30 18:52 | XMS_ITS | Encounter Summary ---
Author Organization [facility] Address [address] [place] [address] Phone Care Team Providers Care Cover Seamer Name Role Phone Wiliam Das MD Primary Care Provider + Eric Watson MD Unavailable [phone] Kayla Kruse [facility] Unavailable [phone] Encounter Details Date Type Department Care Team (Late st Contact Info) Description 01/16/2017 Procedure Pass [facility] [address] [place] [address] Social History Tobacco Use Types Packs/Day Years [...] on filedocumented in this encounter Care Teams Cover Seamer Relationship Specialty Start Date End Date Wiliam Das MD [address] [place] [address] PCP - General Internal Medicine 04/18/16 Eric Watson MD [address] [place] [address], [place] [address] Referring Physician General Surgery 04/18/16 Kayla Kruse, [address], [place] [address] [email or web address] Flux Mixer 04/21/16 documented as of this encounter Additional Source Comments The information contained in this document represents components of the legal health record. It is not the complete legal health record.[facility]
--- OUTSIDE RECORDS SUMMARY | 2025-01-30 18:52 | XMS_ITS | Encounter Summary ---
Author Organization [facility] Address [address] [place] [address] Phone Care Team Providers Care Grid Caster Name Role Phone Wiliam Das MD Primary Care Provider + Eric Watson MD Unavailable [phone] [facility] Unavailable [phone] Reason for Referral * MRI/CAT Scan - Denied Specialty Diagnoses / Procedures Referred By Jeancarlos dominguez Referred To Contact Radiology Diagnoses Status post partial thyroidectomy Procedures US 3D Reconstruction Thyroid Michelle Cheatham FNP Phone: tel: fax: [email or web address] Referral ID Status Reason Start Date Expiration Date Visits Re quested Visits Authorized [id number] Denied 05/01/2017 1 0 Encounter Details Date Type Department Care Team (Latest Contact Info) Description 05/01/2017 Ancillary Orders [facility] Surgical Oncology [address], [address], [address] [place] [address] Michelle Cheatham FNP [address] [place] [address] [email or web address] Status post partial thyroidectomy Social History [...] status documented in this encounter Care Teams Grid Caster Relationship Specialty Start Date End Date Wiliam Das MD [address] [place] [address] PCP - General Internal Medicine 04/18/16 Eric Watson MD [address] [place] [address], [place] [address] Referring Physician General Surgery 04/18/16 Kayla Kruse, [address], [place] [address] [email or web address] Pastry Cook Helper 04/21/16 documented as of this encounter Additional Source Comments The information contained in this document represents components of the legal health record. It is not the complete legal health record.[facility]
--- OUTSIDE RECORDS SUMMARY | 2025-01-30 18:52 | XMS_ITS | Encounter Summary ---
Author Organization [employer] [place] [facility] Address [address] [place] [address] Phone Care Team Providers Care Electronic Test Technician Name Role Phone Wiliam Das MD Primary Care Provider + Eric Watson MD Unavailable [phone] Kayla Kruse [facility] Unavailable [phone] Encounter Details Date Type Department Care Team (Late st Contact Info) Description 05/01/2017 Procedure Pass [facility] Imaging [address] [place] [address] Social History Tobacco Use Types Packs/Day Years [...] on filedocumented in this encounter Care Teams Electronic Test Technician Relationship Specialty Start Date End Date Wiliam Das MD [address] [place] [address] PCP - General Internal Medicine 04/18/16 Eric Watson MD [address] [place] [address], [place] [address] Referring Physician General Surgery 04/18/16 Kayla Kruse, [address], [place] [address] [email or web address] Die Maker Stamping 04/21/16 documented as of this encounter Additional Source Comments The information contained in this document represents components of the legal health record. It is not the complete legal health record.[facility]
--- OUTSIDE RECORDS SUMMARY | 2025-01-30 18:52 | XMS_ITS | Clinical Summary ---
Author Organization [place] [address] [address] [facility] Address [address] [place] [address] Phone Care Team Providers Care Offset Lithographic Press Operator Name Role Phone Arpit Green MD Primary Care Provider [phone] Allergies Active Allergy Reactions Criticality Noted Date [...] by mouth 1 (one) time each day. 024 Active zolpidem CR (AMBIEN CR) 12.5 mg [...] apply route daily. 1 for each hand 018 Active atorvastatin (LIPITOR) 20 mg tablet TAKE 1 TABLET BY MOUTH EVERYDAY AT BEDTIME 90 tablet 1 025 Active fluticasone propion-salmetero L (Advair HFA) 230-21 mcg/actuation inhalerIndication s:Mild persistent asthma, uncomplicated INHALE 2 PUFFS INTO THE LUNGS 2 TIMES DAILY. THIS MEDICATION HAS INHALER STEROID: RINSE MOUTH WITH WATER AND EXPECTORATE AFTER EACH DOSE TO PREVENT ORAL/ESOPHAGEA L CANDIDIASIS OR FUNGAL INFECTION. 12 each 2 025 Active meloxicam (MOBIC) 7.5 mg tablet TAKE 1 TABLET BY MOUTH 2 TIMES A DAY. 60 tablet 1 025 Active albuterol HFA (Ventolin HFA) 90 mcg/actuation inhalerIndication s:Mild persistent asthma, uncomplicated INHALE 2 PUFFS INTO THE LUNGS EVERY 6 HOURS NEEDED FOR WHEEZING OR SHORTNESS OF BREATH, TIGHTNESS 54 each 025 Active Ventolin HFA 90 mcg/actuation inhalerIndication s:Mild persistent asthma, uncomplicated INHALE 2 PUFFS INTO THE LUNGS EVERY 6 HOURS NEEDED FOR WHEEZING OR SHORTNESS OF BREATH, TIGHTNESS 54 each 1 025 2024 Discontinued Active Problems Problem Noted Date Diagnosed Date [...] Encounters Date Type Department Care Team Description 11/20/2024 1:10 PM EDT Office Visit [facility] [address] [place] [address] Leesa Mckenzie NP Syncope and collapse (Primary Dx); Chest pain, unspecified type from Last 3 Months Immunizations Immunization Administration Dates Next Due Influenza trivalent, 0.5mL, [...] recurrent major depressive disorder, without psychotic features (CMS/HCC V24, CMS/HCC V28) 09/14/2016 DX:Severe episode of recurre nt major depressive disorder, without psychotic features (HCC) Thyroid cancer (CMS/HCC V24, CMS/HCC V28) 01/27/2017 DX:Thyroid cancer (HCC); COM MENT: cT4N1 (tessie IVB), widely invasive FTC, S/p radiation 06/2016 with good response (tumor down from 5.7 cm to 2.3 cm), left hemithyroidectomy 04/06/2017 Epilepsy (CMS/HCC V24, CMS/HCC V28) DX:Epilepsy (HCC) Meningitis DX:Meningitis Family History Medical History Relation [...] on file Sexual Orientation Not on file Last Filed Vital Signs Vital Sign Reading Time Taken Comments Blood Pressure 108/72 11/20/2024 1:22 PM EDT Pulse 87 11/20/2024 1:22 PM EDT Temperature - - Respiratory Rate - - Oxygen Saturation 96% 11/20/2024 1:22 PM EDT Inhaled Oxygen Concentration - - Weight 73.9 kg (163 lb) 11/20/2024 1:22 PM EDT Height 172.7 cm (5' 8 ) 11/20/2024 1:22 PM EDT Body Mass Index 24.78 11/20/2024 1:22 PM EDT Plan of Treatment Upcoming Encounters Date Type Department Care Team (Late st Contact Info) Description 02/17/2025 10:25 AM EST Consult [facility] [address] [place] [address] Jeevan Hanna MD [address] [place] [address] [place] [address] Health Maintenance Due Date Last Done Comments Colorectal Cancer Screening: Colonoscopy 1970 Drug Screen 1970 Non-Opioid Controlled Substance Agreement 1970 COVID-19 Vaccine (#1) 1973 Hepatitis B Vaccines (1 of 3 - 19+ 3-dose series) 07/24/1987 Pneumococcal Vaccine: 50+ Years (1 of 2 - PCV) 07/24/1987 Zoster Vaccines (1 of 2) 07/24/1987 Cervical Cancer Screening: P ap Smear 07/14/2018 07/15/2015 RSV Immunization Adult Patients (1 - Risk 50-74 years 1-dose series) 2018 Breast Cancer Screening 04/30/2021 05/01/19 20, 03/01/2018 HIV Screening 01/16/2022 Hepatitis C Screening 01/16/2022 Social Influencers of Health Screening 01/16/2022 Depression Screening 02/14/2024 Influenza Vaccine (#1) 2024 6, 12/17/2014 Cholesterol Screening (Lipid Panel) 08/20/2029 08/20/2024, 01/10/2023 DTaP,Tdap,and Td Vaccines (2 - Td [...] age to complete this topic Meningococcal B Vaccine Aged Out No l onger eligible based on patient's age to complete this topic RSV Immunization Patients Under 20 months Aged Out No longer eligible b ased on patient's age to complete this topic Varicella Vaccines Aged Out No longer eligible based on patient's age to complete this topic Procedures Procedure Name Priority Date/Time Associated Diagnosis Comments ECG 12-LEAD Routine 11/20/2024 4:02 PM EDT Syncope and collapse LIPID PANEL WITH REFLEX TO DIRECT LDL Routine 08/20/2024 1:46 PM EDT Screening for hyperlipidemia [facility] SCREENING DIGITAL Routine 05/01/2019 1:25 PM EDT Encounter for screening mammogram for malignant neoplasm of breast PAP SMEAR Routine 07/15/2015 from Last 3 Months or Most Recently Relevant to Health Maintenance Results * ECG 12 lead (11/20/2024 4:02 PM EDT) Ventricular Rate ECG 87 BPM GEMUSE Atrial Rate 87 BPM GEMUSE P-R Interval 140 ms GEMUSE QRS Duration 76 ms GEMUSE Q-T Interval 366 ms GEMUSE QTc 440 ms GEMUSE P Wave Oxford 41 degrees GEMUSE R Oxford 18 degrees GEMUSE T Oxford 28 degrees GEMUSE ECG Interpretation Normal sinus rhythm Nonspecific ST abnormality Abnormal ECG When compared with ECG of 15-MAR-2024 14:26, No significant change was found Confirmed by Rg SLAUGHTER JAMES ([id number]) on 11/21/2024 12:41:28 PM GEMUSE 11/20/2024 1:30 PM EDT 11/21/2024 12:41 PM EDT Leesa Mckenzie NP ECG ORDERABLES Edited Result - Final GEMUSE * (ABNORMAL) Lipid panel with reflex to direct LDL (08/20/2024 1:46 PM EDT) Pathologist [facility] Cholesterol 304(H) 0 - 200 mg/dL LAB CHEMISTRY METHOD 08/20/2024 11:05 PM EDT [facility] Triglycerides 155(H) 0 - 150 mg/dL LAB CHEMISTRY METHOD 08/20/2024 11:05 PM EDT [facility] HDL 95 >=40 mg/dL LAB CHEMISTRY METHOD 08/20/2024 11:05 PM EDT [facility] LDL Calculated 178(H) 0 - 100 mg/dL LAB CHEMISTRY METHOD 08/20/2024 11:05 PM EDT [facility] VLDL Cholesterol Chan 31 mg/dL LAB CHEMISTRY METHOD 08/20/2024 11:05 PM EDT [facility] Non HDL Chol. (LDL+VLDL) 209(H) <145 mg/dL LAB CHEMISTRY METHOD 08/20/2024 11:05 PM EDT [facility] Chol/HDL Ratio 3.2 0.0 - 4.4 LAB CHEMISTRY METHOD 08/20/2024 11:05 PM EDT [facility] Blood Venous blood specimen / Unknown Venipuncture / Unknown 08/20/2024 1:46 PM EDT 08/20/2024 1:46 PM EDT us Arpit Green MD LAB BLOOD ORDERABLES Final Res ult [facility] [address] [place] [address], * MORA SCREENING DIGITAL (05/01/2019 1:25 PM EDT) Anatomical Region Laterality Modality Mammography 04/29/2019 1:11 PM EDT Narrative 05/01/2019 1:25 PM EDT [facility] Diagnostic Imaging Department [address] [place] [address] Patient: JACK LAMBERT /Age/Sex: 1970 - 48 - F Unit#: [id number] Location/Status: SPDIMAM/REG CLI Mnemonic/Ordering Site: [facility] Ordering Physician: ARPIT GREEN MD Mora Screening Digital - 04/29/19 - 1334 EXAM: Mora Screening Digital EXAM DATE AND TIME: 04/29/2019 1:37 PM HISTORY: Screening. Sister had breast carcinoma at age 47. COMPARISON: 03/01/18 ([facility], [place], [place]) TECHNIQUE: CC and MLO views of both breasts were obtained using full field digital mammography. Bilateral digital breast tomosynthesis was performed in the MLO projection. Computer aided detection with the [employer] was employed. TISSUE DENSITY: b. There are [...] No evidence of malignancy is seen. BI-RADS: Category 0: Incomplete - Need Additional Imaging Evaluation RECOMMENDATION(S): 1: Ultrasound follow-up RIGHT [id number], [id number], [id number] Dictating Physician: NATA SALDIVAR MD Electronically Signed by: NATA SALDIVAR MD Dic Date/Time: 05/01/19 1324 Sign date/Time: 05/01/19 1325 Procedure Note Nata Saldivar - 02/01/2022 [facility] Diagnostic Imaging Department [address] [place] [address] Patient: JACK LAMBERT /Age/Sex: 1970 - 48 - F Unit#: [id number] Location/Status: [facility]/REG CLI Mnemonic/Ordering Site: [facility] Ordering Physician: ARPIT GREEN MD Mora Screening Digital - 04/29/19 - 1334 EXAM: Mora Screening Digital EXAM DATE AND TIME: 04/29/2019 1:37 PM HISTORY: Screening. Sister had breast carcinoma at age 47. COMPARISON: 03/01/18 ([facility],[place], [place]) TECHNIQUE: CC and MLO views of both breasts were obtained using fullfield digital mammography. Bilateral digital breast tomosynthesis was performedin the MLO projection. Computer aided detection with the [employer] employed. TISSUE DENSITY: b. There are scattered [...] Imaging Evaluation RECOMMENDATION(S): 1: Ultrasound follow-up RIGHT [id number], [id number], [id number] Dictating Physician: NATA SALDIVAR MD Electronically Signed by: NATA SALDIVAR MD Dic Date/Time: 05/01/19 1324 Sign date/Time: 05/01/19 1325 us Arpit Green MD IMG BI PROCEDURES Final Result * Pap Smear (07/15/2015) Pap smear No Interpretation , Abstracted Historical Provider HEALTH MAINTENANCE Final Result from Last 3 Months or Most Recently Relevant to Health Maintenance Insurance [facility] [employer] Care Teams Offset Lithographic Press Operator Relationship Specialty Start Date End Date Arpit Green MD [address] [place] [address] PCP - General Internal Medicine 11/26/14
--- OUTSIDE RECORDS SUMMARY | 2025-01-30 18:52 | XMS_ITS | Clinical Summary ---
Author Organization [facility] Address [address] [place] [address] Phone Care Team Providers Care Crib Pad Maker Name Role Phone Wiliam Das MD Primary Care Provider + Eric Watson MD Unavailable [phone] Kayla Kruse PARLIAMENTARY COUNSEL Unavailable [phone] Allergies Active Allergy Reactions Criticality Noted Date [...] She was seen for initial consultation at [facility] on 04/18, and subsequently referred to the ED for concerns for airway compromise. She has significant local mass effect causing sob, dysphagia and LUE weakness/pain. She was seen by endocrine surgery (Dr. Asael Vazquez), and was not found to be a candidate for surgical resection. Planned for incisional biopsy today. Primary oncologist Dr. Lua/Thong Matute MAT WEAVER. - Plan per primary oncology team: ongoing planning for initiation of chemo/radiation with weekly carbo taxol as radiation sensitizers. - PET scan per outpatient team, f/u read - S/p biopsy of neck mass in the OR 04/[address] Vazquez - Radiation oncology consulted, appreciate recs: Confirmed in agreement for discharge home to [facility] with plan to have radiation as an [...] VACCINE (#1) 2024 6, 12/17/2014 COVID-19 VACCINE ( - 2024-2 6 season) 2024 RSV VACCINE (1 - 1-dose 75+ series) 07/24/2043 SMOKING STATUS SCREENING (On ce After 26 [...] topic Medical Devices Not on file Insurance [address] [facility] Member Subscriber Plan / Payer (Ef fective 2016-Present) Name:Toya Lambert Relation to Subscriber:Self Name:Toya Lambert Payer ID:Not on file Type:Medicaid Address: [address] Member Subscriber Plan / Payer (Ef fective 2016-Present) Name:Humera Lambertne Relation to Subscriber:Self Name:Toya Lambert Payer ID:Not on file Type:Medicaid Address: [address] Member Subscriber Plan / Payer (Ef fective 2016-Present) Name:Toya Lambert Relation to Subscriber:Self Name:Toya Lambert Payer ID:Not on file Type:Medicaid Address: [address] Member Subscriber Plan / Payer (Ef fective 2016-Present) Name:Humera Lambertne Relation to Subscriber:Self Name:Toya Lambert Payer ID:Not on file Type:Medicaid Address: [address] Member Subscriber Plan / Payer (Ef fective 2016-Present) Name:Toya Lambert Relation to Subscriber:Self Name:Toya Lambert Payer ID:Not on file Type:Medicaid Address: [address] Member Subscriber Plan / Payer (Ef fective 2016-Present) Name:Humera Lambertne Relation to Subscriber:Self Name:Toya Lambert Payer ID:Not on file Type:Medicaid Address: [address] Member Subscriber Plan / Payer (Ef fective 2016-Present) Name:Toya Lambert Relation to Subscriber:Self Name:Toya Lambert Payer ID:Not on file Type:Medicaid Address: [address] [facility] Member Subscriber Plan / Payer (Ef fective 2016-Present) Name:Toya Lambert Relation to Subscriber:Self Name:Toya Lambert Payer ID:Not on file Type:Medicaid Address: [address] Advance Directives For more information, please contact: [phone] (9AM - 5PM [facility], Monday-Monday) Documents on File Type Date Recorded Patient Dater Assembler Expl anation Healthcare Proxy 04/22/2016 9:22 AM [...] Agents on File Name Relationship Healthcare Agent Relationshi p Communication Loreta Mason Sister .Primary [facility] Care Agent (Proxy form on file) Care Teams Crib Pad Maker Relationship Specialty Start Date End Date Wiliam Das MD [address] [place] [address] PCP - General Internal Medicine 04/18/16 Eric Watson MD [address] [place] [address], [place] [address] Referring Physician General Surgery 04/18/16 Kayla Kruse, [address], [place] [address] [email or web address] Blender Helper 04/21/16 Additional Source Comments The information contained in this document represents components of the legal health record. It is not the complete legal health record.[facility]
--- OUTSIDE RECORDS SUMMARY | 2025-01-30 18:52 | XMS_ITS | Encounter Summary ---
Author Organization [facility] Address [address] [place] [address] Phone Care Team Providers Care Hogshead Cooper Name Role Phone Wiliam Das MD Primary Care Provider + Eric Watson MD Unavailable [phone] Kayla Kruse [facility] Unavailable [phone] Encounter Details Date Type Department Care Team (Late st Contact Info) Description 04/18/2016 Procedure Pass [facility] [address] [place] [address] Social History Tobacco Use Types Packs/Day Years [...] on filedocumented in this encounter Care Teams Hogshead Cooper Relationship Specialty Start Date End Date Wiliam Das MD [address] [place] [address] PCP - General Internal Medicine 04/18/16 Eric Watson MD [address] [place] [address], [place] [address] Referring Physician General Surgery 04/18/16 Kayla Kruse, [facility] [address], [place] [address] [email or web address] Director 04/21/16 documented as of this encounter Additional Source Comments The information contained in this document represents components of the legal health record. It is not the complete legal health record.[facility]
== END 2025-01-30 15:31 | disposition home or self-care (01) ==
LOC: HO.RHES 14:46
PROVIDERS: PCP Internal Medicine; Visit Provider Internal Medicine Rheumatology
DX: M17.0 Bilateral primary osteoarthritis of knee (principal)
CPT/HCPCS: 20610; 99213

== ENCOUNTER → 2025-01-30 14:46 | Outpatient (BNVA) | payer OTHER, SELFPAY | PROVIDERS: PCP Internal Medicine; Visit Provider Internal Medicine Rheumatology | DX: M17.0 Bilateral primary osteoarthritis of knee (principal) | CPT/HCPCS: 20610; 99212; J2003; J3301 ==